=== PATIENT | male | born 1940 | race Caucasian/White ===

== ENCOUNTER 2016-08-17 07:30 | Inpatient (IN) | payer MEDICARE, OTHER ==
[~2016-08-17] VITALS: Ht 175.3 cm; Wt 74.8 kg
[2016-08-17] VITALS (7 sets, daily range): BP systolic 110–151; BP diastolic 31–77; PULSE 85–104; RESP 12–23; O2SAT 96–100
[~2016-08-17 07:30] MED LIST: ASPI-973 PO; ATOR40TA69 PO; CHOL100045 PO; DIPH25CA6 PO; HYDR-4003 PO; INSU100I13 SUBQ; METO25TA99 PO; NIAC-9 PO; ONDA-53 PO; SEVE800T7 PO; TICA90TA PO; ZOLP5TAB6 PO; ZYL100 PO
--- NOTE | 2016-08-17 07:30 | ED.REPORT ---
HPI-Chest Pain 40 and Over Date of Service Aug 17, 2016 ED Provider: Dr. Dickens Pt is a 75 year old male with a history of DM, a-fib and renal failure, being treated with dialysis who presents to the ED via EMS with concerns chest pain that was alleviated with nitroglycerin, which started several weeks ago. He reports that he woke up this mooning with centralized chest tightening, and attempted to alleviate the pain with nitroglycerin, without any alleviation of his symptoms. He reports that he eventually took 3 nitroglycerin total, and then called the EMS. Per dispatch, he took 4 baby Aspirin. Pt denies any radiation of his pain, diaphoresis, shortness of breath, nausea or vomiting. He reports that he had a heart attack in 2014, requiring an aortic valve replacement, he then had a second heart attack in 2016. Pt reports that at this time, he has no continued chest discomfort. He reports that he missed his dialysis appointment yesterday. Nursing Notes Stated Complaint: CHEST PAIN/STEMI Chief Complaint: Chest Pain Nursing Notes Reviewed: Yes Allergies: Coded Allergies: clopidogrel (Verified Allergy, Unknown, 06/28/16) per med.records from [facility] Scheduled Allopurinol (Allopurinol) 100 Mg Tablet 100 MG PO DAILY Aspirin (Aspirin) 81 Mg Tablet 81 MG PO DAILY Atorvastatin Calcium (Atorvastatin Calcium) 40 Mg Tablet 40 MG PO DAILY Cholecalciferol (Vitamin D3) (Vitamin D) 1,000 Unit Capsule 1,000 UNIT PO DAILY Insulin Glargine (Lantus U100 Solostar Insulin Pen) 100 Unit/1 Ml Insuln.pen 40 UNITS SUBQ HS Metoprolol Succinate ER (Metoprolol Succinate ER) 25 Mg Tab.er.24h 25 MG PO DAILY Niacin ER (Niacin ER) 500 Mg Tablet 500 MG PO DAILY Sevelamer Carbonate (Renvela) 800 Mg Tablet 800 MG PO TIDWM Ticagrelor (Brilinta) 90 Mg Tablet 90 MG PO BID Scheduled PRN Hydrocodone-Acetaminophen 5-325 mg (Hydrocodone-Acetaminophen 5-325 mg) 1 Each Tablet 1 EACH PO Q4H PRN PRN For Pain Nitroglycerin SL (Nitrostat) 0.4 Mg Tab.subl 0.4 MG SL Q5MIN PRN PRN For Pain Ondansetron (Ondansetron) 4 Mg Tablet 4 MG PO QID PRN PRN For Nausea Zolpidem (Zolpidem) 5 Mg Tablet 5 MG PO HS PRN PRN Insomnia diphenhydrAMINE HCl (Benadryl) 25 Mg Capsule 25 MG PO Q4 PRN PRN For Itching General Time Seen by MD: 07:30 Chief Complaint Chest pain Hx Obtained From: Patient, EMS Arrived By: Ambulance Sudden in Onset?: Yes Onset Occurred: 5 - 8 hours ago Symptom Duration: Since onset Location: : Chest left: Chest right Quality: Heaviness, Painful Radiation: : Does not radiate Severity: Current: No pain currently Severity: Maximum: Mild Similar Sx Previous: Yes Past Medical History Past Medical History Recent subarachnoid and subdural hematoma, hospitalized at [facility] in [place]. Hypertension Recent transcatheter aortic valve replacement Diabetes mellitus End-stage renal disease, on hemodialysis History of heart block, s/p pacemaker placement Paroxysmal atrial fibrillation Ischemic cardiomyopathy Coronary artery disease Past Surgical History Aortic valve replacement Family History Noncontributory Smoking History Never Smoker Social History Lives in [place] Alcohol Use: Denies alcohol use Drug Use: Denies drug use Other Social History: Good social support, Lives alone Ambulatory Status Independent Review of Systems Constitutional: Denies: Chills, Fever, Malaise, Weakness - generalized Respiratory: Denies: Non-productive cough, Shortness of breath, Wheezing Cardiovascular: Reports: Chest pain, Denies: Syncope GI: Denies: Abdominal pain, Constipation, Diarrhea, Nausea, Vomiting Musculoskeletal: Denies: Back pain, Extremity pain, Neck pain Skin: Denies Diaphoresis Neurologic: Denies: Abnormal movement, Change LOC, Dizziness, Headache, Syncope , Weakness Complete sys rev & neg: except as marked. Physical Exam Initial Vital Signs Vital Signs (First) Date Time Temp Pulse Resp B/P Pulse Ox O2 Delivery O2 Flow Rate FiO2 08/17/16 07:54 36.2 104 14 131/64 100 Room Air 08/17/16 08:07 2 Initial VS: Reviewed Head / Eyes: Atraumatic, Normocephalic, PERRL ENT: Mucous membranes moist, Conjunctiva normal, No scleral icterus Neck: Supple, Non-tender, Full range of motion Skin: Warm, Dry, No cyanosis Neurologic: Alert, Oriented, Nonfocal Psychiatric: Mood/affect normal, Behavior normal, Normal thought content General/Constitutional: Awake, Alert, Well appearing, Well developed, Well nourished, Cooperative [place] on the right upper extremity Respiratory / Chest: Atraumatic, Breath sounds NL, Breath sounds = bilat, No respiratory distress Cardiovascular: Heart rate NL, Regular rhythm, Heart sounds NL, No gallop, No murmurs, No rubs Abdomen: Atraumatic, Soft, Non-tender Interpretation & Diagnostics Lab Results Interpretation Result Diagram: 08/17/16 0754 08/17/16 0754 Test 08/17/16 05:35 08/17/16 07:54 08/17/16 08:43 Total Creatine Kinase 55U/L (21-232) Creatine Kinase MB 8.1ng/mL (0.0-10.4) Creatine Kinase MB % 14.7% (0.0-5.0) White Blood Count 13.6th/mm3 (3.8-10.1) Red Blood Count 3.36mil/mm3 (4.40-5.80) Hemoglobin 10.5g/dL (13.8-17.2) Hematocrit 31.8% (41.0-50.0) Mean Corpuscular Volume 94.6fL (81-100) Mean Corpuscular Hemoglobin 31.3pg (27.0-35.0) Mean Corpuscular Hemoglobin Concent 33.0% (32.0-37.0) Red Cell Distribution Width 17.5% (12.3-15.4) Platelet Count 126bil/L (150-400) Neutrophils (%) (Auto) 78.8% (40-74) Lymphocytes (%) (Auto) 11.1% (14-46) Monocytes (%) (Auto) 5.9% (4-12) Eosinophils (%) (Auto) 3.3% (0-5) Basophils (%) (Auto) 0.7% (0-3) Activated Partial Thromboplast Time 32.1sec (22.8-33.0) Sodium Level 140mEq/L (134-144) Potassium Level 4.4mEq/L (3.5-5.2) Chloride Level 97mEq/L (97-108) Carbon Dioxide Level 15mmol/L (18-29) Blood Urea Nitrogen 68mg/dL (8-27) Creatinine 8.43mg/dL (0.76-1.27) Estimat Glomerular Filtration Rate 7mL/min (>59) Glucose Level 174mg/dL (60-99) Calcium Level 9.7mg/dL (8.5-10.1) Magnesium Level 2.1mg/dL (1.6-2.6) Total Bilirubin 0.4mg/dL (0.0-1.2) Aspartate Amino Transf (AST/SGOT) 22U/L (0-50) Alanine Aminotransferase (ALT/SGPT) 18U/L (0-44) Alkaline Phosphatase 109U/L (25-160) Troponin T 0.943ug/L (0.0-0.011) Total Protein 6.0g/dL (6.4-8.4) Albumin 3.3g/dL (3.4-5.0) Hold [place] Top Tube Received (Received) ECG Interpretation ECG Interpretation: Atrial-sensed ventrical paced rhythm - 95 Time: 07:37 X-Ray Chest Interpretation Chest Xray Interpretation: IMPRESSION: 1. No acute cardiopulmonary disease. Dictated by: Heber Mora M.D. on 08/17/2016 at 10:25 View: Portable, 1 view Interpretation / Wet Read by: Interpret - Radiologist Re-Eval/Medical Decision Source of Hx: Old records Summary of Info: Current Medication: trazodone Zofran metoprolol Sevelamer Carbonate Time of Eval: 10:02 Re-Evaluation/Progress Note: Pt is rechecked and informed of his lab results and the plan to admit him at this time. He understands and agrees, all questions are addressed. Consultation #1: Referral / Consult Name: Yadira Mclain MD Consulted With: Cardiology Call Returned at: 09:36 House Piping Inspector: Will see patient, Agrees with eval, Agrees with plan Consultation #2: Referral / Consult Name: Akua Walsh MD Consulted With: Nephrology Call Returned at: 09:41 House Piping Inspector: Will see patient, Agrees with eval, Agrees with plan Consultation #3: Referral / Consult Name: Krish Guzman MD Consulted With: Hospitalist Call Returned at: 09:55 House Piping Inspector: Agrees with eval, Agrees with plan, Referred to other consult Consultation #4: Referral / Consult Name: Dez Grissom MD Consulted With: Hospitalist Call Returned at: 10:14 House Piping Inspector: Will see patient, Agrees with plan, Accepts admit Counseled Regarding: Diagnosis, Lab results, Need for admission Discharge & Departure Primary Impression: Unstable angina Disposition: ADMITTED TO HOSPITAL Discharge Condition All VS Reviewed: Yes Condition: Stable Referrals: Hema Phillips MD (PCP) Scribe Attestation Portions of this note were transcribed by Karlee Junior. I, Dr. Dickens personally performed the history, physical exam and medical decision-making; I reviewed and confirmed the accuracy of the information in the transcribed note. Signed by: Karlee Suazo, 08/17/2016 10:37 copies to: Hema Phillips MD, Kirk H MD Aug 17, 2016 07:30 SARAH JUNIOR Aug 17, 2016 07:46
[2016-08-17 08:07] LABS: BASOPHILS % (AUTO) 0.7 % (0-3); EOSINOPHILS % (AUTO) 3.3 % (0-5); MONOCYTES % (AUTO) 5.9 % (4-12); Mean Corpuscular Hemoglobin 31.3 pg (27.0-35.0); Mean Corpuscular Volume 94.6 fL (81-100); NEUTROPHILS % (AUTO) 78.8 % (40-74); Platelet Count 126 bil/L (150-400)
[2016-08-17 09:05] LABS: TROPONIN T 0.943 ug/L (0.0-0.011)
[2016-08-17 09:27] LABS: Magnesium 2.1 mg/dL (1.6-2.6)
[2016-08-17] MEDS ORDERED: NITR0.4T SL (09:54)
[2016-08-17] MEDS ORDERED: Heparin 5,000 Unit/mL Inj IVPUSH PRN (10:00)
[2016-08-17] MEDS ORDERED: Heparin 25K Unit/500mL 0.45 NS 25,000 UNIT in IV Premix 1 EACH IV SCH (10:00)
[2016-08-17] MEDS ORDERED: Heparin 5,000 Unit/mL Inj IVPUSH ONE ×2 (10:00)
--- NOTE | 2016-08-17 10:30 | DRSVH ---
PROCEDURE: X-RAY CHEST ONE VIEW, PORTABLE ([id number]) INDICATIONS: CHEST PAIN TECHNIQUE: One view of the chest was acquired. COMPARISON: [facility], , CHEST 1 VIEW, 08/16/2016, 10:38. FINDINGS: Surgical changes and devices: Left chest wall triple lead pacemaker is stable in position. A stent i s again noted projecting over the heart. Lungs and pleura: No pleural effusions or pneumothorax. Lungs are clear. Mediastinum: Mediastinal contours appear unchanged. Heart size is normal. Bones and chest wall: No suspicious bony lesions. Overlying soft tissues appear unremarkable. IMPRESSION: 1. No acute cardiopulmonary disease. Dictated by: Heber Mora M.D. on 08/17/2016 at 10:25 Approved by: Heber Mora M.D. on 08/17/2016 at 10:25
[2016-08-17] MEDS ORDERED: Alum-Mag Hydrox-Simeth 30 mL Suspension PO PRN (11:25)
[2016-08-17] MEDS ORDERED: Ondansetron 2 mg/mL 2 mL Inj IVPUSH PRN (11:25)
[2016-08-17] MEDS ORDERED: Polyethylene Glycol (PEG) 17 Gm Powder PO PRN (13:45)
--- NOTE | 2016-08-17 13:47 | NUR ---
ED to PCC Patient arrived at approximately 1150 to PCC. Patient had to use bathroom upon arrival. Patient AO, aware of place, self and time. States he has been unsteady on his feet since his last heart attack and some memory deficits. Care continues.
--- NOTE | 2016-08-17 15:18 | CONS ---
[address] [address] CONSULTATION REPORT PATIENT: ALLY HIRSCH : 1940 MR#: [id number] ADMIT: 08/17/2016 JOB ID: [id number] DATE OF SERVICE: 08/17/2016 NEPHROLOGY CONSULTATION: REQUESTING PHYSICIAN: Dez Grissom MD REASON FOR CONSULTATION: Management of end-stage renal disease. CHIEF COMPLAINT: Chest pain. HISTORY OF PRESENT ILLNESS: This is a 75-year-old male with significant past medical history of end-stage renal disease on hemodialysis every Friday, Friday, and Friday, type 2 diabetes, hypertension, coronary artery disease status post stent placement, aortic stenosis status post TAVR, paroxysmal atrial fibrillation, recent history of subarachnoid and subdural hematoma, presented to the hospital due to substernal chest pain. The patient reported having chest pain this morning. The patient took nitroglycerin without relief. He also took four pills of baby aspirin. He then called the EMS and was brought to the emergency department for further investigation. The patient has significant past medical history of heart attack x2 in 2014 and in 2015 that required stent placement. The initial workup showed the troponin of 0.9 for three, CK-MB of 14.7. Initial EKG showed a paced rhythm. Of note, in the emergency department the patient was found to be confused. CT head was done and showed no acute abnormalities. During my visit the patient is at the medical observation unit being on dialysis. He is awake, alert. He has no chest pain or shortness of breath at the moment. He is a patient of . He has been on dialysis for one and half years. He has right AV fistula which is working well. He missed dialysis yesterday. PAST MEDICAL HISTORY: 1. End-stage renal disease, on hemodialysis every Friday, Friday, and Friday. 2. Type 2 diabetes with renal manifestation. 3. Hypertension with hypertensive nephrosclerosis. 4. Coronary artery disease with history of heart attack in 2014 and 2015, status post stent placement. 5. Aortic stenosis status post TAVR. 6. Paroxysmal atrial fibrillation. 7. Heart block status post pacemaker placement. 8. Recent history of subarachnoid and subdural hematoma. PAST SURGICAL HISTORY: 1. Status post trans catheter aortic valve replacement in 2016. 2. Pacemaker placement 2016. 3. PCI with stent placement 2016. 4. History of corneal transplant. 5. Status post AV fistula creation. FAMILY HISTORY: Positive for stroke in father. Mother had type 2 diabetes and was on dialysis. SOCIAL HISTORY: Denies current use of alcohol, tobacco, illicit drugs. REVIEW OF SYSTEMS: Constitutional: No fever, no chills. HEENT: No headaches. No blurred vision. Cardiovascular: Positive for chest pain, resolved. Lungs: No cough, no hemoptysis. GI: No nausea or vomiting. : The patient is making some urine. Skin: No rashes, no excoriation. Hematology: No active bleeding. No bruises. Neuro: No neurological deficit. PHYSICAL EXAMINATION: Vitals: Temperature 36.4, pulse 98, respiratory 18, blood pressure 151/77, O2 sat 100% on nasal cannula 2 L. General appearance: Awake, alert. Oriented x3. In no acute distress. HEENT: Mild pallor. No jaundice. No JVD. No lymphadenopathy. No thyroid enlargement. Heart: Regular rate and rhythm. Normal S1, S2. No murmurs, rubs, or gallops. Lungs: Clear to auscultation bilaterally. Abdomen: Soft. Umbilical hernia noted. No hepatosplenomegaly. Extremity: No edema, cyanosis, or clubbing of the fingers. The right AV fistula with good thrill and bruit. LABORATORY: Sodium 140, potassium 4.0, chloride 97, bicarb 15, BUN 68, creatinine 8.43, glucose 174, calcium 9.7, magnesium 2.1. Troponin 0.943. Albumin 3.3. WBC 13.8, hemoglobin 10.5. ASSESSMENT: 1. End-stage renal disease, on hemodialysis every Friday, Friday, and Friday. The patient missed dialysis yesterday. The patient is currently on the hemodialysis. Stable blood pressure. He has no chest pain. No shortness of breath at the moment. We will continue dialysis three and a half hours. Fluid removal 1.5 L with a 2 potassium bath, 37 bicarbonate bath. Blood flow rate 400, dialysate flow rate 600. 2. Chest pain with elevated troponin. 3. Significant past medical history of coronary artery disease status post myocardial infarction, status post stent placement. 4. Altered mental status, resolved. Patient with a significant past medical history of a fall complicated by subarachnoid and subdural hematoma. He is now awake and alert. Continue to observe. 5. Type 2 diabetes with renal manifestation. 6. Hypertension with hypertensive nephrosclerosis. 7. Aortic stenosis status post transcatheter aortic valve replacement (TAVR). Thank you for the consultation. We will monitor along with you.
--- NOTE | 2016-08-17 17:23 | NUR ---
Dialysis note 3 1/2 hr HD tx. 1000ml net UF removed. See DTR for complete vitals. 2 15 g needles to RU fistula. Pt rested comfortably thru tx. Sureseals/and pt held post tx. Report given and pt returned to floor stable.
--- NOTE | 2016-08-17 18:16 | PCM.HPMED ---
Subjective Date of Service Aug 17, 2016 Primary Provider: Admitting Physician: Dez Grissom MD Primary Care Physician: Hema Phillips MD Attending Physician: Dez Grissom MD Admit Status: From the Emergency Department, Admit to [facility] Team Chief Complaint: Chest pain History of Present Illness: Lalo Trinh is a 75-year-old male with significant past medical history for end-stage renal disease on hemodialysis dialysis Friday and Friday, type II diabetes, hypertension, coronary artery disease status post drug- eluting stents, aortic stenosis status post TAVR, paroxysmal atrial fibrillation with pacemaker placement, and recent history of subarachnoid and subdural hematoma who presents with chest pain. Chest pain began around 0 and was described as a tight pressure sensation. He took 3 doses of his nitroglycerin and symptoms resolved. At this time he still called EMS who brought him to the emergency department for further workup. Of note he missed his dialysis session yesterday, 08/16, due to being at [facility] for a rapid heart rate. He states that his rapid heart rate resolved with medications given to him in the emergency department. Patient denies any continued chest pain. He states he is only on aspirin and Plavix was discontinued after being found to have a subdural hematoma in June 2016. He saw his email marketing coordinator Dr. Albrecht 2 weeks ago and there was no mention of restarting the Plavix at that time. Patient's primary care doctor is Dr. Phillips and rpg developer is Dr. Lopez. Patient currently denies any chest pain, palpitations, shortness of breath, nausea, vomiting, diarrhea, fever , chills, or dysuria. On presentation to the emergency department temp was 36.2, pulse was 104, respiratory rate 14, pulse oximetry 100% on room air, blood pressure 131/64. Patient was found to have an elevated troponin of 0. 943 elevated from his baseline of 0.1. BUN and creatinine 68 and 8.43. Leukocytosis of 13.6 and hemoglobin 10.5. Review of Systems: Comprehensive review of systems was conducted with the patient and found to be negative except as noted above in HPI. Allergies Coded Allergies: clopidogrel (Verified Allergy, Unknown, 06/28/16) per med.records from [facility] Home Medications Hydrocodone 5/325 every 6 hours when necessary Trazodone 100 mg nightly Lantus 20-40 units nightly Metoprolol 25 mg daily Atorvastatin 40 mg daily Renvela 2400 mg daily Nitrostat when necessary Allopurinol 100 mg daily Aspirin 81 mg daily Vitamin D PMH Recent subarachnoid and subdural hematoma, hospitalized at [facility] in [place] and discharge 06/14/16. Type 2 diabetes mellitus Hypertension CAD with history of AL s/p drug-eluting stent placement Aortic stenosis s/p TAVR ESRD on HD (M/W/F) Paroxysmal atrial fibrillation History of heart block s/p pacemaker placement Ischemic cardiomyopathy Surgical History TAVR (2016) Pacemaker placement (2016) PCI with drug-eluting stent placement (2016) History of multiple corneal transplants Family History Father - stroke Mother - DMII who ended up with ESRD on HD Social History Occupation: retired contractor Hx Alcohol Use: No Hx Substance Use: No Hx Tobacco Use: No Smoking Status: Never Smoker Living Arrangement: Alone Exam Vital Signs Vital Sign - Last Date Time Temp Pulse Resp B/P Pulse Ox O2 Delivery O2 Flow Rate FiO2 08/17/16 11:47 36.4 98 18 151/77 100 Nasal Cannula 2.00 Exam General: No acute distress, well-developed, well-nourished, appropriately interactive HEENT: Normocephalic, atraumatic. External ears without defect. Pupils equal, round, and reactive to light and accommodation. Anicteric sclerae, moist conjunctivae, and no lid lag. Oropharynx free of erythema and cobble stoning with moist mucosa. Neck: Supple with full range of motion. No jugular venous distension. No bruits. No lymphadenopathy or thyromegaly. Cardiovascular: Regular rate and rhythm with II/IV systolic murmur. Pulmonary: Clear to auscultation bilaterally with no crackles, wheezes, or rhonchi. Normal respiratory effort with no use of accessory muscles. Abdomen: Bowel tones present. Soft, nontender, nondistended. No hepatosplenomegaly or masses appreciated. Extremities: Right arm fistula with palpable pulses. No clubbing, cyanosis, edema, or lymphadenopathy appreciated. Skin: Normal temperature, turgor, and texture; no rash, ulcers, or subcutaneous nodules appreciated. Neurological: Cranial nerves grossly intact. Normal muscle strength, tone, and bulk. Reflexes, coordination, and sensory function within normal limits. No known gait impairment. Psychiatric: Normal mood and affect. Alert and oriented to person, place, and time. Lab and Diagnostics Result Diagram: 08/17/16 0754 08/17/16 0754 X-Rays, CTs and MRIs X-RAY CHEST ONE VIEW, PORTABLE IMPRESSION: 1. No acute cardiopulmonary disease. Dictated by: Heber Mora M.D. on 08/17/2016 at 10:25 Approved by: Heber Mora M.D. on 08/17/2016 at 10:25 Assessment & Plan Lalo Trinh is a 75-year-old male with significant past medical history for end-stage renal disease on hemodialysis dialysis Friday, Friday, and Friday, type II diabetes, hypertension, coronary artery disease status post drug- eluting stents, aortic stenosis status post TAVR, paroxysmal atrial fibrillation with pacemaker placement, and recent history of subarachnoid and subdural hematoma who presents with chest pain. 1. Chest pain, present on admission, resolved. - Chest pain lasted for 1-2 hours and resolved as EMS arrived at home. Patient has a long cardiac history including multiple stents, valve replacement, and pacemaker placement. Called the on-call doctor at [facility], Dr. Ryan Prajapati, to discuss patient as his home regimen appears to include only aspirin and no Plavix or subsequent agent. He confirmed this is the only agent per Dr. Albrecht's note [address] Albrecht is the patient's email marketing coordinator who completed the TAVR. This is likely explained by the patient's recent subdural hematoma in June 2016 but is concerning as the patient has drug-eluting stents. - Initial troponin on admission was 0.943. - Serial troponins are pending but will be difficult to assess as patient had dialysis. - Heparin drip was not started due to recent subdural hematoma in June 2016. - Aspirin 81 mg daily. - Atorvastatin 40 mg daily. - Echo planned for tomorrow. - Discussed case with [facility] - Cardiology consulted. Appreciate time and expertise. Acute encephalopathy secondary to possible TIA, present on admission. 2. End-stage renal disease on hemodialysis, present on admission, active. - Schedule M/W/. Patient missed most recent dialysis appointment on 08/16. - On admission BUN and creatinine were 68 and 8.43. - Patient received dialysis today. - Repeat labs in the morning. - Nephrology following. Appreciate time and expertise. 3. Diabetes mellitus type 2, present on admission, chronic. - Hemoglobin A1c 5.3 on 06/28/16.. - Home regimen includes 20-40 units of Lantus HS. - Regular insulin low-dose protocol. 4. Leukocytosis, present on admission, active. - Possibly secondary to stress or demarcation. - WBC 13.6 on admission. - Asymptomatic and afebrile. - Repeat CBC in the morning. 5. CAD s/p stenting, chronic, presume stable. - Continue atorvastatin 40 mg HS. - Continue aspirin 81 mg daily - Antiplatelet agents stopped according to explanation in #1. 6. Hypertension, chronic, presume stable. - Continue metoprolol succinate 25 mg daily. 7. Gout, chronic, presume stable. - Continue allopurinol 100 mg daily. 8. Insomnia, chronic, presume stable. - Zolpidem 5 mg available PRN HS. 9. Recent TAVR, presume secondary to aortic stenosis, presume stable. - Patient appears well compensated at this time. - Dr. Albrecht at [facility] was the email marketing coordinator. Patient is admitted under inpatient status with expected length of stay greater than 2 midnights due to severity of presenting symptoms, risk of adverse event, and complexity of treatment plan. - PCP Hema Phillips - Labor Mediator Marc Lopez - Cyber Security Architect Dr. Albrecht Pain Evaluation: Adequate Pain Control GI Prophylaxis: Not indicated VTE Prophylaxis: SCDs, Other (contraindicated due to recent subdural hematoma) Resuscitation Status: DNR/DNI:Do Not Resuscitate/Intubate Attending Statement The patient was seen and examined together with Dr. Coe on 08/17/2016 and I agree with the history, exam and plan as outlined in the note above. . copies to: Hema Phillips MD, BETHANY A DO Aug 17, 2016 12:10 Dez Grissom MD Aug 17, 2016 21:27
--- NOTE | 2016-08-17 19:06 | NUR ---
Dialysis to PCC Patient arrived back from dialysis at approximately 1730. Patient AOx3 ready to drink water and eat dinner. Patient states he is forgetful and confused at times, also states he is unsteady on his feet and uses a walker at home. Patient's blood sugar was 172, orders for medications are not in [facility] yet. Patient eating dinner, resting comfortably. Call light in place, patient educated to use call light for assistance to bathroom. Pt cooperative, acknowledged need to use call light. Care continues.
--- NOTE | 2016-08-17 19:10 | NUR ---
Medications Medications ordered at 1750, waiting for pharmacy to send medications. Will pass on in report to night court magistrate.
[2016-08-17] MEDS: MeTOProlol XL 25 mg ER24 Tablet PO SCH (19:48)
--- NOTE | 2016-08-17 20:15 | NUR ---
Trops Patients troponin levels have trended up gates this evening. Patient is resting comfortably in bed without signs of distress. Vital signs are stable and patient is complaint free. Provider informed about the rising troponin levels. No new orders at this time.
[2016-08-17] MEDS: Insulin Human REGular 300 Unit/3 mL Inj SUBQ SCH ×2 (20:30→21:10)
[2016-08-18] VITALS (10 sets, daily range): BP systolic 101–143; BP diastolic 50–88; PULSE 79–100; RESP 12; O2SAT 93–100
[2016-08-18] MEDS: Insulin Human REGular 300 Unit/3 mL Inj SUBQ SCH ×3 (02:30→12:58)
--- NOTE | 2016-08-18 02:40 | NUR ---
Blood sugar. Patient's blood sugar was found to be 66 this morning. Patient is free of complaints at this time and is resting comfortably in bed. Patient was given several snacks and blood sugar eventually came up to 110. Morning insulin was held and vitals are stable.
[2016-08-18 03:53] LABS: BASOPHILS % (AUTO) 0.8 % (0-3); EOSINOPHILS % (AUTO) 5.7 % (0-5); MONOCYTES % (AUTO) 11.1 % (4-12); Mean Corpuscular Hemoglobin 30.8 pg (27.0-35.0); Mean Corpuscular Volume 95.5 fL (81-100); NEUTROPHILS % (AUTO) 66.7 % (40-74); Platelet Count 111 bil/L (150-400)
[2016-08-18 04:17] LABS: Magnesium 1.8 mg/dL (1.6-2.6)
--- NOTE | 2016-08-18 07:47 | NUR ---
ED to [facility] Patient arrived from ED at approximately 0725. Report taken from Carol Mckee in ED. Patient desatting to 83% during assessment. Increase O2 to 6L satting at 89% with oxymask. Addendum: 08/18/16 at 1331 by ZACHARIAH FLOOD RN Charted on wrong patient
[2016-08-18] MEDS: MeTOProlol XL 25 mg ER24 Tablet PO SCH (08:30)
[2016-08-18] MEDS ORDERED: Heparin 5,000 Unit/mL Inj IVPUSH PRN (12:10)
[2016-08-18] MEDS ORDERED: Heparin 5,000 Unit/mL Inj IVPUSH ONE (12:10)
--- NOTE | 2016-08-18 12:15 | PROG NOTE ---
[address] [address] PROGRESS NOTE PATIENT: ALLY HIRSCH : 1940 MR#: [id number] ADMIT: 08/17/2016 JOB ID: [id number] ADDENDUM TO ORIGINAL CARDIOLOGY CONSULT NOTE: DATE: 08/18/2016 In the interim since I worked with the patient today, I have reviewed his echocardiogram. It does appear he has old inferior inferolateral wall motion abnormalities, but now the anterior anterolateral anteroseptal apex appears relatively hypokinetic which was not seen on a previous echo. He is chest-pain free. I have talked with Dr. Buchanan at [facility] in [place] and asked him if they had a bed for the patient for transfer given his issue of TAVR (unknown type of valve), history of stents, old angiographic views available there, and a history of head bleed. He got back to me and told me that he did not have any beds to accept this patient at the time. He did do some research on the patient given his history of head bleed and said it would be reasonable to go on heparin and felt that all signs suggested that the patient would not have any problems on heparin. So, we are going to put him on heparin. We are going to keep him on the Brilinta, keep him on aspirin and all his other cardiac medications and hope that a bed opens up for transfer for further assessment by a team who knows this complex gentleman better.
[2016-08-18] MEDS: Heparin 25K Unit/500mL 0.45 NS 25,000 UNIT in IV Premix 1 EACH IV SCH (12:51)
--- NOTE | 2016-08-18 13:35 | CONS ---
[address] [address] CONSULTATION REPORT PATIENT: ALLY HIRSCH : 1940 MR#: [id number] ADMIT: 08/17/2016 JOB ID: [id number] DATE OF SERVICE: 08/18/16 CARDIOLOGY CONSULT: I was asked by the hospital team to consult on this patient given elevated troponin. HISTORY OF PRESENT ILLNESS: The patient is a 75-year-old man with extensive past medical history noted for end-stage renal disease on dialysis, type 2 diabetes, hypertension, and coronary disease. He also status post a TAVR for symptomatic aortic stenosis on April 16, 2016. He has a history of recent fairly recent stenting of the left anterior descending artery and right coronary artery with drug-eluting stents in March 2016. In addition the patient had problems with headache back in June 2016 and therefore he was sent for further assessment and there it was identified that the patient had bilateral subdural hematomas and a small subarachnoid bleed. He was not felt to be an operative candidate. At that time they held his antiplatelet medication which include aspirin and Brilinta. Recommendations at that time were for holding those medications for a total of two weeks and reinitiating those on June 25, 2016. I have spoken with the patient and he says that he is taking those medications once again. He tells me he has had multiple followup CTs which have not shown any worsening problems and he currently denies any problems with headache. With this current admission, early yesterday morning he developed an episode of chest discomfort. He tried nitroglycerin and was not certain if that worked but he was able to go back to bed. He got up again with chest discomfort, took two additional nitroglycerins, and given nonresolution of the chest discomfort he called the ambulance. He requested the ambulance take him up to [place] given his extensive cardiac history and the people who know him well there; however, he was taken to this ER. His initial troponin was already elevated, the CPK was not elevated, and the CK-MB was not elevated. Creatinine was 8.43 with a BUN of 68. As our team did not have any information about this patient's followup regarding head bleeds he was not put on heparin. There was some confusion about whether he was taking his antiplatelets at this time again, given lack of information. He was continued on a baby aspirin, however. Yesterday we were able to speak to the on-call vacuum spindle sander and old records were sent yesterday afternoon. The patient is doing well. He denies any chest pressure or chest discomfort. He would like to go home, in fact. He denies increased shortness of breath. He had dialysis yesterday. Prior to this, he had not had any chest pressure, chest tightness, orthopnea, PND, lower extremity edema, palpitations, presyncope, or syncope, although per review of a note from August 02, 2016, with his primary vacuum spindle sander, it said that he had been having chest pain over the last several days relieved with nitro. PAST MEDICAL HISTORY/PROBLEM LIST: 1. History of TAVR for aortic stenosis. 2. History of coronary disease with recent stenting to the right coronary artery and left anterior descending artery with drug-eluting stents. These were placed in March 2016. 3. Recent admission in June 2016 with bilateral subdural hematomas and a small subarachnoid bleed, during which he held his antiplatelets for two weeks and then had them reinitiated. He tells me again he has had multiple followup CTs. 4. End-stage renal disease. 5. Paroxysmal atrial fibrillation. 6. History of heart block status post pacer placement. 7. Reports of ischemic cardiomyopathy. PAST SURGICAL HISTORY: 1. TAVR in 2015. 2. Pacemaker placement 2015. 3. Drug-eluting stent as noted. 4. Also history of corneal transplants. MEDICATIONS: Included Benadryl as needed, Brilinta 90 mg b.i.d., atorvastatin 40 mg daily, metoprolol succinate 25 mg daily, niacin ER 500 mg daily, aspirin 81 mg daily, hydrocodone as needed, zolpidem 5 mg q.h.s. p.r.n., sevelamer 800 mg tablets, Zofran, glargine insulin, and allopurinol. ALLERGIES: INTOLERANCES APPARENTLY TO CLOPIDOGREL OR PLAVIX. SOCIAL HISTORY: He has never smoked. No alcohol use. FAMILY HISTORY: No early coronary disease. REVIEW OF SYSTEMS: Constitutional: No fevers, chills, night sweats, or weight loss. GI: No problems with ulcers or blood in his stool. : On dialysis. Neuro: Headaches with subdural hematomas, small arachnoid bleed in June 2016. Currently no problems with headaches or neurologic problems. Derm: No rash or skin breakdown. Musculoskeletal: No acute issues at this time. Heme: No easy bruising or bleeding. Endocrine: Diabetes mellitus. No heat or cold intolerance. Pulmonary: No history of lung issues. No increased shortness of breath. Cardiac: As per HPI. Denies orthopnea, PND, lower extremity edema. ENT: No difficultly swallowing. No sore throat. Ophtho: No vision changes. Psych: No acute issues. All other review of systems on a 12-point review of system are negative. PHYSICAL EXAMINATION: His blood pressure is 101/55. He is afebrile. Sats are 98% on room air. General: No acute distress. Speaking in full sentences, without apparent shortness of breath. Head and neck: Normocephalic, atraumatic. Neck: No obvious JV distention. Vascular: No carotid bruits. Distal pulses are palpable. Heart: Regular rate and rhythm. A slight systolic murmur is appreciated. Lungs: Clear to auscultation anteriorly. Back: No CVA tenderness to palpation. Abdomen: Soft, nontender. Extremities: Warm. I do not appreciate edema Skin: No breakdown appreciated. Neuro: Alert and interactive. Gait not tested. Psych: Appropriate mood and affect. vision: grossly normal LABORATORY AND DIAGNOSTIC STUDIES: EKG shows a paced rhythm. IMAGING: Shows a chest x-ray with no acute cardiopulmonary disease. LABORATORY STUDIES: Labs show troponin was 0.943 and it has ranged in the range of 1.4-1.5. Today sodium 141, potassium 4.2. Chloride and bicarb 98 and 27, respectively. BUN and creatinine 30 and 5. IMPRESSION: 1. The patient came in with an elevated troponin. There has been a slight increase, although there has been no elevation of CK or CK-MB. He is currently chest pain free. There is no clue as to what vessel might have been involved given his paced rhythm. He denies any chest discomfort at this time and he would like to go home. He was not placed on heparin during this admission because there was a lack of knowledge about his previous bleeding history; we did not have information about the recommendations regarding his head bleed which he had in June. We now have received some of that information but at this point he is on he is on Brilinta and aspirin I will discuss further with his vacuum spindle sander in [place] 2. We have ordered an echocardiogram to look at the wall motion and see if we see any focal wall motion abnormalities that might be related to the elevated troponin. Unfortunately I do not have his old cath films and I have I have very limited information about his previous heart catheterization. I will review that and then I think we need to discuss this case with the vacuum spindle sander in [place] as to whether they want to take this gentleman and take him to cardiac catheterization or do we want to treat him conservatively with medical management at this juncture. 2 hours was spent discussing this case with the hospital team, reviewing old hospital records, discussing with the construction lineman vacuum spindle sander at [place], and speaking with an examining the patient MTDD
--- NOTE | 2016-08-18 14:10 | NUR ---
Medication Patient refused Sevelamer states he only takes it before he eats. Patient finished breakfast.
--- NOTE | 2016-08-18 14:56 | PCM.PNMED ---
Subjective Date of Service Aug 18, 2016 Subjective Chest pain subsided, on heparin gtt. eval by instrumentation technician. pt to be transferred to [facility]. HD yesterday without complication. Exam Vital Signs Vital Sign - Last Date Time Temp Pulse Resp B/P Pulse Ox O2 Delivery O2 Flow Rate FiO2 08/18/16 12:20 36.7 83 12 143/50 100 Room Air 08/17/16 11:47 2.00 Intake and Output 08/17/16 08/17/16 08/18/16 Cumulative From/Thru 15:00 23:00 07:00 08/17/16 07:54 - 08/18/16 06:41 Intake Total 50 ml 50 ml Output Total 1000 ml 0 ml 1000 ml Balance -1000 ml 50 ml -950 ml Intake Oral 50 ml 50 ml Output Urine Total 0 ml 0 ml Ultrafiltrate 1000 ml 1000 ml Exam PHYSICAL EXAMINATION: General appearance: Awake, alert. Oriented x3. In no acute distress. HEENT: Mild pallor. No jaundice. No JVD. No lymphadenopathy. No thyroid enlargement. Heart: Regular rate and rhythm. Normal S1, S2. No murmurs, rubs, or gallops. Lungs: Clear to auscultation bilaterally. Abdomen: Soft. Umbilical hernia noted. No hepatosplenomegaly. Extremity: No edema, cyanosis, or clubbing of the fingers. The right AV fistula with good thrill and bruit. Lab and Diagnostics Result Diagram: 08/18/16 0338 08/18/16 0338 X-Rays, CTs and MRIs X-RAY CHEST ONE VIEW, PORTABLE IMPRESSION: 1. No acute cardiopulmonary disease. Dictated by: Heber Mora M.D. on 08/17/2016 at 10:25 Approved by: Heber Mora M.D. on 08/17/2016 at 10:25 Assessment & Plan 1. End-stage renal disease, on hemodialysis every Friday, Friday, and Friday. The patient missed dialysis yesterday. 2. Suspected NSTEMI, on heparin drip and brilinta. 3. Significant past medical history of coronary artery disease status post myocardial infarction, status post stent placement. 4. Altered mental status, resolved. 5. Type 2 diabetes with renal manifestation. 6. Hypertension with hypertensive nephrosclerosis. 7. Aortic stenosis status post transcatheter aortic valve replacement (TAVR). 8. h/o intracranial hemorrhage. Plan: No urgent HD indicated today. Next HD on Friday. Pt to be transferred to [facility] Thank you for the consultation. GI Prophylaxis: Not indicated VTE Prophylaxis: SCDs, Other (contraindicated due to recent subdural hematoma) VTE Mechanical Devices: Intermittant Pneumatic CD Resuscitation Status: DNR/DNI:Do Not Resuscitate/Intubate Akua Walsh MD Aug 18, 2016 14:56
--- NOTE | 2016-08-18 18:18 | NUR ---
ED to [facility] Patient arrived from ED, report taken from Anna Caceres ED RN. Patient able to transfer to bed independently. SPO2 88% upon arrival. RT in room with pt, oxymask 2L satting at 90%. Pt AOx3, denies chest pain, denies bipap at this time okay for oxymask. Care continues. Addendum: 08/18/16 at 1821 by ZACHARIAH FLOOD RN Wrong patient
--- NOTE | 2016-08-18 18:28 | NUR ---
Resting Patient states he is more tired than normal, resting throughout the day. Cooperative with care. Care continues.
[2016-08-18] MEDS ORDERED: Glucose 40% Oral Gel 15 Gm Tube PO PRN (19:35)
--- NOTE | 2016-08-18 19:39 | PCM.PNMED ---
Subjective Date of Service Aug 18, 2016 Subjective Lalo Trinh is a 75-year-old male with significant past medical history for end-stage renal disease on hemodialysis dialysis Friday, Friday, and Friday, type II diabetes, hypertension, coronary artery disease status post drug- eluting stents, aortic stenosis status post TAVR, paroxysmal atrial fibrillation with pacemaker placement, and recent history of subarachnoid and subdural hematoma who presents with chest pain. Hospital day 2. Overnight: No acute events. Today: The patient feels fine and has no complaints. He denies any chest pain, shortness of breath, or weakness. ROS is negative otherwise except as noted above. Exam Vital Signs Vital Sign - Last Date Time Temp Pulse Resp B/P Pulse Ox O2 Delivery O2 Flow Rate FiO2 08/18/16 16:38 36.6 79 125/61 97 Room Air 08/18/16 12:20 12 08/17/16 11:47 2.00 Intake and Output 08/17/16 08/17/16 08/18/16 Cumulative From/Thru 15:00 23:00 07:00 08/17/16 07:54 - 08/18/16 06:41 Intake Total 50 ml 50 ml Output Total 1000 ml 0 ml 1000 ml Balance -1000 ml 50 ml -950 ml Intake Oral 50 ml 50 ml Output Urine Total 0 ml 0 ml Ultrafiltrate 1000 ml 1000 ml Exam General: No acute distress, well-developed, well-nourished, appropriately interactive HEENT: Normocephalic, atraumatic. External ears without defect. Pupils equal, round, and reactive to light and accommodation. Anicteric sclerae, moist conjunctivae, and no lid lag. Oropharynx free of erythema and cobble stoning with moist mucosa. Neck: Supple with full range of motion. No jugular venous distension. No bruits. No lymphadenopathy or thyromegaly. Cardiovascular: Regular rate and rhythm with II/IV systolic murmur. Pulmonary: Clear to auscultation bilaterally with no crackles, wheezes, or rhonchi. Normal respiratory effort with no use of accessory muscles. Abdomen: Bowel tones present. Soft, nontender, nondistended. No hepatosplenomegaly or masses appreciated. Extremities: Right arm fistula with palpable pulses. No clubbing, cyanosis, edema, or lymphadenopathy appreciated. Skin: Normal temperature, turgor, and texture; no rash, ulcers, or subcutaneous nodules appreciated. Neurological: Cranial nerves grossly intact. Normal muscle strength, tone, and bulk. Reflexes, coordination, and sensory function within normal limits. No known gait impairment. Psychiatric: Normal mood and affect. Alert and oriented to person, place, and time. IVs and Medications Medications Reviewed: Medications were reviewed in detail Lab and Diagnostics Result Diagram: 08/18/168 08/18/16337 X-Rays, CTs and MRIs X-RAY CHEST ONE VIEW, PORTABLE IMPRESSION: 1. No acute cardiopulmonary disease. Dictated by: Heber Mora M.D. on 08/17/2016 at 10:25 Assessment & Plan Lalo Trinh is a 75-year-old male with significant past medical history for end-stage renal disease on hemodialysis dialysis Friday, Friday, and Friday, type II diabetes, hypertension, coronary artery disease status post drug- eluting stents, aortic stenosis status post TAVR, paroxysmal atrial fibrillation with pacemaker placement, and recent history of subarachnoid and subdural hematoma who presents with chest pain. Hospital day 2. 1. Chest pain, present on admission, resolved. - Chest pain lasted for 1-2 hours and resolved as EMS arrived at home. Patient has a long cardiac history including multiple stents, valve replacement, and pacemaker placement. Patient is on ASA and Brilinta which was restarted by Dr. Mclain. - Dr. Albrecht is the patient's research and development director who completed the TAVR. This is likely explained by the patient's recent subdural hematoma in June 2016 but is concerning as the patient has drug-eluting stents. - Initial troponin on admission was 0.943, trending up - Heparin drip was not started due to recent subdural hematoma in June 2016. - Aspirin 81 mg daily. - Atorvastatin 40 mg daily. - Echo showing the anterior anterolateral anteroseptal apex appears relatively hypokinetic which was not seen on a previous echo. - Patient started on heparin drip. - Likely plan is to transfer patient back to [facility] where patient is well known to the cardiology team pending a bed - Cardiology consulted. Appreciate time and expertise. 2. End-stage renal disease on hemodialysis, present on admission, active. - Schedule M/W/F. Patient missed most recent dialysis appointment on 08/16. - On admission BUN and creatinine were 68 and 8.43. - Repeat labs in the morning. - Nephrology following. Appreciate time and expertise. 3. Diabetes mellitus type 2, present on admission, chronic. - Hemoglobin A1c 5.3 on 06/28/16.. - Home regimen includes 20-40 units of Lantus HS. - Will restart patient on Lantus now that he is no longer NPO 4. Leukocytosis, present on admission, active. - Possibly secondary to stress or demarcation. - WBC 13.6 on admission, improving - Asymptomatic and afebrile. - Repeat CBC in the morning. 5. CAD s/p stenting, chronic, presume stable. - Continue atorvastatin 40 mg HS, aspirin 81 mg daily, Brilinta 6. Hypertension, chronic, presume stable. - Continue metoprolol succinate 25 mg daily. 7. Gout, chronic, presume stable. - Continue allopurinol 100 mg daily. 8. Insomnia, chronic, presume stable. - Zolpidem 5 mg available PRN HS. 9. Recent TAVR, presume secondary to aortic stenosis, presume stable. - Patient appears well compensated at this time. - Dr. Albrecht at [facility] was the research and development director. - PCP Hema Phillips - Hospice Clinical Supervisor Marc Lopez - Hotbed Lever Operator Dr. Albrecht Pain Evaluation: Adequate Pain Control Disposition: Possible transfer to [facility] tomorrow or overnight pending a bed. GI Prophylaxis: Not indicated VTE Prophylaxis: SCDs, Other (contraindicated due to recent subdural hematoma) VTE Mechanical Devices: Intermittant Pneumatic CD Resuscitation Status: DNR/DNI:Do Not Resuscitate/Intubate Attending Statement The patient was seen and examined together with Dr. Frias on 08/18/2016 and I agree with the history, exam and plan as outlined in the note above. . Mildred Frias DO Aug 18, 2016 19:39 Dez Grissom MD Aug 20, 2016 14:18
[2016-08-18] MEDS: Insulin LISPRO 300 Unit/3 mL Inj SUBQ SCH (20:29)
[2016-08-18] MEDS: Insulin GLARgine 100 Unit/mL Syringe SUBQ SCH (20:33)
[2016-08-19] VITALS (12 sets, daily range): BP systolic 106–138; BP diastolic 56–80; PULSE 86–128; RESP 12–20; O2SAT 93–100
--- NOTE | 2016-08-19 04:30 | NUR ---
Diarrhea and heparin protocol Patient remained on the cardiac heparin protocol throughout the night without signs of bleeding. Patient denies chest pain and shortness of breath at rest. Patient rested comfortably for most of the evening. Patient had one large loose bowel movement and patient reports that he has chronic bouts of diarrhea. Patient was given Imodium to help decrease the patients diarrhea. Patients vitals remained stable throughout the night.
[2016-08-19 06:08] LABS: BASOPHILS % (AUTO) 0.8 % (0-3); EOSINOPHILS % (AUTO) 5.3 % (0-5); Mean Corpuscular Hemoglobin 31.1 pg (27.0-35.0); Mean Corpuscular Volume 93.7 fL (81-100); NEUTROPHILS % (AUTO) 71.7 % (40-74); Platelet Count 104 bil/L (150-400)
--- NOTE | 2016-08-19 06:25 | NUR ---
Chest pain. Patient placed call light on and informed me that he started having chest pain about 5 minutes earlier. Patient's labs had been draw recently and he reported that he feels his heart rate has increased. Hr in the 120. Patient reports heavy chest pain. Patient denies SOB, N/V and weakness. Patient given 2 does of nitro and reported that his chest pain has resolved. MD Apple is aware of the situation.
[2016-08-19] MEDS: Insulin LISPRO 300 Unit/3 mL Inj SUBQ SCH ×4 (08:00→21:34)
[2016-08-19] MEDS: MeTOProlol XL 25 mg ER24 Tablet PO SCH (08:11)
--- NOTE | 2016-08-19 08:35 | NUR ---
Social Work: Initial Assessment Late Entry from 08/18/16 Data & Assessment: EMR Reviewed. See Initial Assessment. Veterinary Radiologist met with patient at bedside to complete initial assessment, discuss discharge planning and SW role reviewed. Patient is Alert and oriented x 3. Patient has a high re-admit score of 4. Patient is a 75 y/o male that admitted for chest pain resolved and stage four renal. Patient confirmed that his PCP is Dr. Hema Phillips. Patient also confirmed that Medicare is his primary insurance and [employer] supp. is his secondary. Patient does not have VA benefits or LTC insurance. Prior to admission patient lived home alone in a mobile home with 5 steps to enter. Patient is independent with ADLs. Patient has a walker but reported that he only uses it outside of the house. Patient does not have any HH or SNF history. Patient will likely discharge home no needs. Patient states that one of his sons will pick him up when discharged. SW will continue to follow. Plan: Patient will likely discharge home no need via POV. SW will continue to follow. Gayla Carvalho LMSW, TYLER Addendum: 08/19/16 at 0843 by GAYLA LANDAVERDE Amended: Links added.
--- NOTE | 2016-08-19 11:01 | NUR ---
MOC for dialysis/ 12 pm PTT lab draw delayed for after dialysis: Report received from primary RN Gricelda Ivan Patient alert and oriented. At 1045 denied any chest pain. He is on his Heparin drip running at 1025 units/hr. He has a 12 pm PTT lab draw per Heparin drip protocol. Lab and PCC manager intensive care unit called to coordinate lab draw for when patient returns to his room after dialysis. Otherwise labs drawn during dialysis will be inaccurate. break off worker called per patient request to speak with him about potentially transferring to [facility] in [place].
--- NOTE | 2016-08-19 11:17 | DRSVH ---
[facility] [address] [place] [address] Echocardiogram Report Name: ALLY HIRSCH WStudy Date: 08/18/2016 Height: 69 in Hospital Exam Location: [facility] Weight: 170 lb Gender: Male BSA: 1.9 m2 : 1940 Age: 75 yrs BP: 127/67 mmHg Reason For Study: Chest pain Ordering Physician: Performed By: [facility] [place] [facility] Interpretation Summary 1. Mildly dilated left ventricle with mild septal prominence and wall motion abnormalities as noted. Global EF is estimated at 40%. 2. Normal right ventricular size and systolic function. 3. The prosthetic aortic valve is well seated. No insufficiency is appreciated. The mean gradient across the valve is unchanged from the previous echo of 06/29/16 Compared to the previous study of 06/29/16, the apical wall motion abnormalities are new Procedure: A two-dimensional transthoracic echocardiogram with color flow and Doppler was performed. The study quality was technically adequate. Comparison is made with the echocardiogram of 06-29-16. The patient has a paced rhythm. Left Ventricle: There is mild asymmetric left ventricular hypertrophy. The left ventricle is mildly dilated. Left ventricular ejection fraction is estimated to be 40%. Focal wall motion abnormalities affecting the basal inferior wall and inferolateral stark (these were noted on the patient's prior echo). There is hypokinesis of the distal/apical anterior/anteroseptal and possibly anterolateral wall. The apical inferior/inferoseptal wall also appears at least mildly hypokinetic. Diastolic function could not be accurately assessed due to paced rhythm. Right Ventricle: The right ventricle is normal in size and function. There is a pacemaker lead in the right ventricle. Atria: The left atrium is mildly dilated. Right atrial size is normal. No color doppler evidence for an ASD. Mitral Valve: The mitral valve leaflets appear mildly thickened, but open well. There is mild to moderate mitral annular calcification. There is mild mitral regurgitation. Aortic Valve: There is a bioprosthetic aortic valve. No aortic regurgitation is present. Tricuspid Valve: The tricuspid valve leaflets are thin and pliable. There is a trace or physiologic amount of tricuspid regurgitation. The right ventricular systolic pressure is estimated at 24 mmHg assuming a right atrial pressure of 3 mm Hg. Pulmonic Valve: The pulmonic valve is normal in structure and function. There is trace pulmonic regurgitation. Great Vessels: The aortic root is normal size. The ascending aorta is mildly dilated at 3.7 cm. The IVC is of normal diameter and collapses greater than 50% with a sniff. This suggests a low right atrial pressure of 3 mm Hg. Pericardium/ Pleura There is no pericardial effusion. There is no pleural effusion. MMode/2D Measurements & Calculations LVIDd: 6.3 cmLA dimension RA long axis: 5.0 cm LVOT diam: 2.2 cm LVIDs: 5.2 cm AoV Openin.8 cm FS: 17.2 % LA A2 area RA area: 19.1 cm Ao root diam: 2.7 cm IVSd: 1.2 cm RA vol: 61.6 ml Aortic Jxn: 2.6 cm LVPWd RA : 32.0 ml/m asc Aorta Diam: 3.7 cm : 0.8cm LA A4 area RVDd major: 6.1 cm Ao Arch Diam (Proximal trans.): 3.1 cm LA length (vol) LA vol: 78.7 ml LA vol index IVC diam: 2.2 cm LVAd ap4 LVAd ap2 LV kent. diameter/BSA LV sys. diameter/BSA : 32.5 2m : 35.8 cm (cm/m^2): 3.3 (cm/m^2): 2.7 LVLd ap2: 9.1 cm EDV(MOD-sp2) EDV(sp2-el) : 121.1 ml RVD1 (basal) RVD2 (mid) : 3.1 cm Doppler Measurements & Calculations Ao V2 max MV E max devon MV E/A: 0.62 TR max devon : 230.5 cm/sec : 91.5 cm/sec Med Peak E' Devon : 228.7 cm/sec Ao max PG MV A max devon TR max P.9 mmHg : 21.2 mmHg : 146.8 cm/sec E/E' med: 20.7 PA V2 max Ao mean PG MV P1/2t: 71.4 msec Lat Peak E' Devon : 99.7 cm/sec : 11.6 mmHg PA mean P.4 mmHg LVOT Max Devon E/E' lat: 21.7 PA Accel Time : 80.6 cm/sec Pulm A Revs Dur : 0.18 sec SVETLANA(I,D) : 1.3 cm2 MV A dur sev ratio : 0.17 sec MV dec time MV P1/2t max devon Ao V2 mean LV V1 max PG : 0.24 sec : 160.4 cm/sec MVA(P1/2t): 3.1 cm2 Ao V2 VTI LV V1 VTI: 18.5 cm SVETLANA(V,D): 1.3 cm2 PA V2 mean SVETLANA indexed to BSA E/e' average Pulm A Revs Dur - MV : 72.3 cm/sec (cm^2/m^2): 0.70 A Dur: -0.04 msec Reading Physician:02:18 PM
--- NOTE | 2016-08-19 13:32 | PCM.PNMED ---
Subjective Date of Service Aug 19, 2016 Subjective Patient has had some intermittent chest pain last night and this morning usually this is relieved with one nitroglycerin. He is tentatively scheduled to be transferred up to [facility] in [place]. She was seen in the dialysis unit today. Exam Vital Signs Vital Sign - Last Date Time Temp Pulse Resp B/P Pulse Ox O2 Delivery O2 Flow Rate FiO2 08/19/16 11:13 123 08/19/16 07:14 12 138/66 96 08/19/16 06:21 36.7 Room Air 08/17/16 11:47 2.00 Intake and Output 08/18/16 08/18/16 08/19/16 Cumulative From/Thru 15:00 23:00 07:00 08/17/16 07:54 - 08/19/16 06:08 Intake Total 482 ml 237 ml 769 ml Output Total 301 ml 1301 ml Balance 181 ml 237 ml -532 ml Intake Oral 360 ml 237 ml 647 ml IV Total 122 ml 122 ml Output Urine Total 300 ml 300 ml Urine/Stool Mix 1 ml 1 ml Ultrafiltrate 1000 ml # Voids 0 0 # Bowel Movements 1 1 2 Exam Neck is supple without adenopathy thyromegaly or jugular venous distention. Lungs were clear to auscultation. Heart was regular and rhythmical with a soft systolic murmur. Abdomen soft without any tenderness rebound guarding masses or hepatosplenomegaly. Extremities shows a clubbing cyanosis or edema. Lab and Diagnostics Result Diagram: 08/19/16 0810 08/19/16 0557 X-Rays, CTs and MRIs X-RAY CHEST ONE VIEW, PORTABLE IMPRESSION: 1. No acute cardiopulmonary disease. Dictated by: Heber Mora M.D. on 08/17/2016 at 10:25 Assessment & Plan Impression #1 end-stage renal disease dialysis dependent #2 hypertension with hypertensive heart disease and hypertensive nephrosclerosis #3 unstable anginal Recommendations #1 patient to be dialyzed today for his routine orders which include 4 hour treatment on 2 potassium bath standard heparin and approximately 1-2 L of fluid to be removed. Patient is stable for transfer after dialysis. GI Prophylaxis: Not indicated VTE Prophylaxis: SCDs, Other (contraindicated due to recent subdural hematoma) VTE Mechanical Devices: Intermittant Pneumatic CD Resuscitation Status: DNR/DNI:Do Not Resuscitate/Intubate Marek Hernández DO Aug 19, 2016 13:32
--- NOTE | 2016-08-19 14:39 | NUR ---
Dialysis note: 4 hr tx Net UF 1200. Right fistula accessed without difficulty 2 - 15g needles. QB 400 , pt alert and communicative throughout tx. c/o chest pain and one SL 4gm nitro given, pain resolved. 1340 BG 82 and 2- ciera crackers given. Blood returned, needles removed and pt held x 10 min, secured with SS gauze and tape. Please see DTR for complete record of VS. Pt returned to floor stable.
--- NOTE | 2016-08-19 15:05 | PROG NOTE ---
[address] [address] PROGRESS NOTE PATIENT: ALLY HIRSCH : 1940 MR#: [id number] ADMIT: 08/17/2016 JOB ID: [id number] DATE: 08/19/2016 CHIEF COMPLAINT: Chest discomfort. SUBJECTIVE: This gentleman had some chest discomfort. It was well localized, retrosternal. It did not radiate. It lasted for a few minutes. Unfortunately, his EKG is not very helpful because of a paced rhythm. PAST MEDICAL HISTORY: His past cardiac history is very complex. That includes history of TAVR in the last few months, coronary artery disease with stenting in March. He has drug-coated stents. In June, he was admitted to the hospital with subdural hematoma. As per the advice of the neurosurgeon, this was treated conservatively and he was advised to refrain from dual-antiplatelet therapy for two weeks. He also has history of end-stage renal disease, paroxysmal atrial fibrillation and ischemic cardiomyopathy with EF running around 40%. He has a history of biventricular pacemaker insertion in 2015. MEDICATIONS: He is currently on: 1. Aspirin. 2. Ticagrelor. 3. Insulin. 4. Lipitor. 5. Metoprolol. 6. Ambien. 7. Imodium. OBJECTIVE: Comfortable, in no apparent distress, even while he was having chest discomfort. Pulse 90, blood pressure 130/66. Neck supple. No JVD. No bruits. Heart sounds S1, S2, regular. No gallops. Abdomen soft. Extremities: Negative CCE. MOTION PICTURE OPERATOR: Alert and oriented. Chest x-ray was normal. LABORATORY DATA: Shows hemoglobin of 9.7, creatinine of 7, troponin that ranges between 1.3-1.6. ASSESSMENT AND PLAN: This gentleman has complex cardiac history. I have incomplete notes from [place]. The patient believes he was also admitted IN [facility] where he may or may not have had a stress test. Before embarking upon repeating some of his investigations, I would like to have all his records. PLANS: I believe we are also to transfer him back to [place]. The primary care team is leading charge on that. At this point, my recommendation would be to up-titrate his beta- blockers to give him adequate antianginal relief and secondly to obtain his prior records, and if he has not had a recent stress test, I would recommend starting off with a stress test first.
--- NOTE | 2016-08-19 16:56 | NUR ---
Social Work Note: Continued Discharge Planning Data& Assessment: SW met with pt at bedside to discuss discharge planning per pt request. Pt had concerns about private costs associated with hospital transfer transportation. SW explained if he is transferring to another hospital per MD recommendations and request, there should not be a private cost associated with the transportation to another hospital, but he would need to be prepared in case he is billed for transport. SW explained that SW does not coordinate hospital transfers so I cannot say for sure exact details regarding costs. Pt explained he will ask the MD about the potential for him being transferred to [facility] in [place] for continued Cardiac care. Pt denies any other needs at this time. SW to continue to follow. Plan: Anticipated discharge home vs. transfer to [facility] in [place]. Pt denies any other needs at this time. SW to continue to follow. MINA Parisi
--- NOTE | 2016-08-19 17:10 | NUR ---
Chest pain, Dialysis, Stress Test Chest pain - At 0720 he was complaining of 7/10 mid-sternal chest pain. Telemetry revealed [id number]. Given a nitro and an EKG was taken. No significant changes. Dr. Coe notified. Said she would review on rounding, but to please contact the Manager Web about this issue as it has been ongoing since his admit and he is experiencing this pain multiple times throughout the day and night. Paged Dr. Saldivar who came shortly after to assess him. Said he would order a stress test. His pain subsided. Around 0917 and 1135 (in dialysis) he complained of pain again. Given a nitro tablet each time and it resolved after one tablet. Dialysis - He went to dialysis about 0945. He returned about 1500. Was settled back into the room. Stress Test - Upon returning from dialysis he politely declined the stress test explaining how he really just wanted to go to [facility] in [place] so that further testing and treatment can be performed there since his Cardiologists are there and know his case well. Notified Dr. Duron and Dr. Coe. Dr. Duron came to talk to him about this further. The stress test has been cancelled for now. Dr. Coe has been trying to get in contact with the hospital. It appears that they are willing to take him, but that they do not have a bed available. Care continues.
--- NOTE | 2016-08-19 17:15 | PCM.PNMED ---
Subjective Date of Service Aug 19, 2016 Subjective Lalo Trinh is a 75-year-old male with significant past medical history for end-stage renal disease on hemodialysis dialysis Friday, Friday, and Friday, type II diabetes, hypertension, coronary artery disease status post drug- eluting stents, aortic stenosis status post TAVR, paroxysmal atrial fibrillation with pacemaker placement, and recent history of subarachnoid and subdural hematoma who presents with chest pain. Hospital day 3. Overnight: No acute events. Today: The patient endorses chest pain that is relieved with nitroglycerin. He denies any shortness of breath, nausea, vomiting, diaphoresis, or weakness. He should receive dialysis today. Stress test was planned for this afternoon but patient refused and would like to be transferred to [place]. He has contacted his own washery engineer who is attempting to secure a bed for him in [place]. We have called [facility] and they do not have an open bed at this time. ROS is negative otherwise except as noted above. Exam Vital Signs Vital Sign - Last Date Time Temp Pulse Resp B/P Pulse Ox O2 Delivery O2 Flow Rate FiO2 08/19/16 16:39 36.9 92 18 107/62 100 Room Air 08/17/16 11:47 2.00 Intake and Output 08/18/16 08/18/16 08/19/16 Cumulative From/Thru 15:00 23:00 07:00 08/17/16 07:54 - 08/19/16 06:08 Intake Total 482 ml 237 ml 769 ml Output Total 301 ml 1301 ml Balance 181 ml 237 ml -532 ml Intake Oral 360 ml 237 ml 647 ml IV Total 122 ml 122 ml Output Urine Total 300 ml 300 ml Urine/Stool Mix 1 ml 1 ml Ultrafiltrate 1000 ml # Voids 0 0 # Bowel Movements 1 1 2 Exam General: No acute distress, well-developed, well-nourished, appropriately interactive HEENT: Normocephalic, atraumatic. External ears without defect. Pupils equal, round, and reactive to light and accommodation. Anicteric sclerae, moist conjunctivae, and no lid lag. Oropharynx free of erythema and cobble stoning with moist mucosa. Neck: Supple with full range of motion. No jugular venous distension. No bruits. No lymphadenopathy or thyromegaly. Cardiovascular: Regular rate and rhythm with II/IV systolic murmur. Pulmonary: Clear to auscultation bilaterally with no crackles, wheezes, or rhonchi. Normal respiratory effort with no use of accessory muscles. Abdomen: Bowel tones present. Soft, nontender, nondistended. No hepatosplenomegaly or masses appreciated. Extremities: Right arm fistula with palpable pulses. No clubbing, cyanosis, edema, or lymphadenopathy appreciated. Skin: Normal temperature, turgor, and texture; no rash, ulcers, or subcutaneous nodules appreciated. Neurological: Cranial nerves grossly intact. Normal muscle strength, tone, and bulk. Reflexes, coordination, and sensory function within normal limits. No known gait impairment. Psychiatric: Normal mood and affect. Alert and oriented to person, place, and time. Lab and Diagnostics Result Diagram: 08/19/16 0810 08/19/16 0557 X-Rays, CTs and MRIs X-RAY CHEST ONE VIEW, PORTABLE IMPRESSION: 1. No acute cardiopulmonary disease. Dictated by: Heber Mora M.D. on 08/17/2016 at 10:25 Assessment & Plan Lalo Trinh is a 75-year-old male with significant past medical history for end-stage renal disease on hemodialysis dialysis Friday, Friday, and Friday, type II diabetes, hypertension, coronary artery disease status post drug- eluting stents, aortic stenosis status post TAVR, paroxysmal atrial fibrillation with pacemaker placement, and recent history of subarachnoid and subdural hematoma who presents with chest pain. Hospital day 3. 1. Chest pain, present on admission, active. - Chest pain lasted for 1-2 hours and resolved as EMS arrived at home. Pain restarted this morning, 08/19. Patient has a long cardiac history including multiple stents, valve replacement, and pacemaker placement. Patient is on ASA and Brilinta which was restarted by Dr. Mclain. - Dr. Albrecht is the patient's insurance account representative who completed the TAVR. This is likely explained by the patient's recent subdural hematoma in June 2016 but is concerning as the patient has drug-eluting stents. - Initial troponin on admission was 0.943, trending up. - Heparin drip started per cardiology's recommendation. - Aspirin 81 mg daily. - Atorvastatin 40 mg daily. - Echo showing the anterior anterolateral anteroseptal apex appears relatively hypokinetic which was not seen on a previous echo. - Likely plan is to transfer patient back to [facility] where patient is well known to the cardiology team pending a bed. - Cardiology consulted. Appreciate time and expertise. 2. End-stage renal disease on hemodialysis, present on admission, active. - Schedule M/W/F. Patient missed most recent dialysis appointment on 08/16. - On admission BUN and creatinine were 68 and 8.43. - Received dialysis today. - Repeat labs in the morning. - Nephrology following. Appreciate time and expertise. 3. Diabetes mellitus type 2, present on admission, chronic. - Hemoglobin A1c 5.3 on 06/28/16.. - Home regimen includes 20-40 units of Lantus HS. - Will restart patient on Lantus now that he is no longer NPO. 4. Leukocytosis, present on admission, active. - Possibly secondary to stress or demargination. - WBC 13.6 on admission, improving - Asymptomatic and afebrile. - Repeat CBC in the morning. 5. CAD s/p stenting, chronic, presume stable. - Continue atorvastatin 40 mg HS, aspirin 81 mg daily, Brilinta 6. Hypertension, chronic, presume stable. - Continue metoprolol succinate 25 mg daily. 7. Gout, chronic, presume stable. - Continue allopurinol 100 mg daily. 8. Insomnia, chronic, presume stable. - Zolpidem 5 mg available PRN HS. 9. Recent TAVR, presume secondary to aortic stenosis, presume stable. - Patient appears well compensated at this time. - Dr. Albrecht at [facility] was the insurance account representative. - PCP Hema Phillips - Sleeve Fixer Marc Lopez - Software Educator Dr. Albrecht Disposition: Possible transfer to [facility] tomorrow or overnight pending a bed. GI Prophylaxis: Not indicated VTE Prophylaxis: SCDs, Other (contraindicated due to recent subdural hematoma) VTE Mechanical Devices: Intermittant Pneumatic CD Resuscitation Status: DNR/DNI:Do Not Resuscitate/Intubate Attending Statement The patient was seen and examined together with Dr. Coats on 08-19-16 and I agree with the history, exam and plan as outlined in the note above. BRICE COATS DO Aug 19, 2016 17:15 Joshua Mojica MD Aug 20, 2016 14:30
[2016-08-19] MEDS: Heparin 25K Unit/500mL 0.45 NS 25,000 UNIT in IV Premix 1 EACH IV SCH (19:19)
[2016-08-19] MEDS: Insulin GLARgine 100 Unit/mL Syringe SUBQ SCH (21:32)
[2016-08-20] VITALS (11 sets, daily range): BP systolic 102–117; BP diastolic 55–72; PULSE 74–97; RESP 16–18; O2SAT 98–100
[2016-08-20 04:43] LABS: Mean Corpuscular Hemoglobin 30.9 pg (27.0-35.0)
[2016-08-20] MEDS ORDERED: Nitroglycerin 2% 1 Gm Ointment TOPICAL PRN (05:40)
[2016-08-20 06:09] LABS: TROPONIN T 1.28 ug/L (0.0-0.011)
--- NOTE | 2016-08-20 07:26 | NUR ---
Chest Pain/Hypoglycemia seo strategist pt c/o 7/10 midsternal chest pain which radiated slightly up to left elbow. Pt placed on O2, Stat EKG done, though this was paced, reviewed w/ charge rn who saw no significant changes. Vitals stable and pt reported relief after one nitro. Pt stated pain down to 1/10 and continued to lessen, refused additional nitro, fell asleep immediately. MD notified of all this, ordered nitropaste for chest pain prophylaxis, as this was applied pt stated chest pain down to 0/10. Blood sugar 60 when reassessed this morning, was 195 at HS and covered w/ Lantus. Blood sugar normalized x2 after juice/crackers.
[2016-08-20] MEDS: Insulin LISPRO 300 Unit/3 mL Inj SUBQ SCH ×4 (08:00→20:11)
[2016-08-20] MEDS ORDERED: MeTOProlol XL 25 mg ER24 Tablet PO SCH (08:30)
--- NOTE | 2016-08-20 12:22 | PCM.PNMED ---
Subjective Date of Service Aug 20, 2016 Subjective Patient is still awaiting transfer to [facility] in [place]. He has had several episodes last 24 hours of chest pain which has been relieved by sublingual nitroglycerin. Otherwise he denies any shortness of breath, nausea, vomiting, or diaphoresis. Exam Vital Signs Vital Sign - Last Date Time Temp Pulse Resp B/P Pulse Ox O2 Delivery O2 Flow Rate FiO2 08/20/16 11:51 37.1 74 18 108/56 98 Room Air 08/17/16 11:47 2.00 Intake and Output 08/19/16 08/19/16 08/20/16 Cumulative From/Thru 15:00 23:00 07:00 08/17/16 07:54 - 08/20/16 06:11 Intake Total 600 ml 680 ml 2049 ml Output Total 1200 ml 0 ml 2501 ml Balance -1200 ml 600 ml 680 ml -452 ml Intake Oral 250 ml 680 ml 1577 ml IV Total 350 ml 472 ml Output Urine Total 0 ml 300 ml Urine/Stool Mix 1 ml Ultrafiltrate 1200 ml 2200 ml # Voids 1 1 # Bowel Movements 1 1 4 Exam Neck is supple without adenopathy thyromegaly or jugular venous distention. Lungs were clear to auscultation. Heart is regular and rhythmical with a soft systolic murmur. Abdomen is soft without any tenderness rebound guarding masses or hepatosplenomegaly. Extremities/was a clubbing cyanosis or edema. Skin turgor is good is no evidence of any rashes. Lab and Diagnostics Result Diagram: 08/20/16 0401 08/20/16 0401 X-Rays, CTs and MRIs X-RAY CHEST ONE VIEW, PORTABLE IMPRESSION: 1. No acute cardiopulmonary disease. Dictated by: Heber Mora M.D. on 08/17/2016 at 10:25 Assessment & Plan Lalo Trinh is a 75-year-old male with significant past medical history for end-stage renal disease on hemodialysis dialysis Friday, Friday, and Friday, type II diabetes, hypertension, coronary artery disease status post drug- eluting stents, aortic stenosis status post TAVR, paroxysmal atrial fibrillation with pacemaker placement, and recent history of subarachnoid and subdural hematoma who presents with chest pain. Hospital day 3. 1. Chest pain, present on admission, active. - Chest pain lasted for 1-2 hours and resolved as EMS arrived at home. Pain restarted this morning, 08/19. Patient has a long cardiac history including multiple stents, valve replacement, and pacemaker placement. Patient is on ASA and Brilinta which was restarted by Dr. Mclain. - Dr. Albrecht is the patient's matrix supervisor who completed the TAVR. This is likely explained by the patient's recent subdural hematoma in June 2016 but is concerning as the patient has drug-eluting stents. - Initial troponin on admission was 0.943, trending up. - Heparin drip started per cardiology's recommendation. - Aspirin 81 mg daily. - Atorvastatin 40 mg daily. - Echo showing the anterior anterolateral anteroseptal apex appears relatively hypokinetic which was not seen on a previous echo. - Likely plan is to transfer patient back to [facility] where patient is well known to the cardiology team pending a bed. - Cardiology consulted. Appreciate time and expertise. 2. End-stage renal disease on hemodialysis, present on admission, active. - Schedule M//. Patient missed most recent dialysis appointment on 08/16. - On admission BUN and creatinine were 68 and 8.43. - Received dialysis today. - Repeat labs in the morning. - Nephrology following. Appreciate time and expertise. 3. Diabetes mellitus type 2, present on admission, chronic. - Hemoglobin A1c 5.3 on 06/28/16.. - Home regimen includes 20-40 units of Lantus HS. - Will restart patient on Lantus now that he is no longer NPO. 4. Leukocytosis, present on admission, active. - Possibly secondary to stress or demargination. - WBC 13.6 on admission, improving - Asymptomatic and afebrile. - Repeat CBC in the morning. 5. CAD s/p stenting, chronic, presume stable. - Continue atorvastatin 40 mg HS, aspirin 81 mg daily, Brilinta 6. Hypertension, chronic, presume stable. - Continue metoprolol succinate 25 mg daily. 7. Gout, chronic, presume stable. - Continue allopurinol 100 mg daily. 8. Insomnia, chronic, presume stable. - Zolpidem 5 mg available PRN HS. 9. Recent TAVR, presume secondary to aortic stenosis, presume stable. - Patient appears well compensated at this time. - Dr. Albrecht at [facility] was the matrix supervisor. - PCP Hema Phillips - Mixer Foam Rubber Marc Lopez - Cinder Dump Crane Operator Dr. Albrecht Disposition: Possible transfer to [facility] tomorrow or overnight pending a bed. GI Prophylaxis: Not indicated VTE Prophylaxis: SCDs, Other (contraindicated due to recent subdural hematoma) VTE Mechanical Devices: Intermittant Pneumatic CD Resuscitation Status: DNR/DNI:Do Not Resuscitate/Intubate Marek Hernández DO Aug 20, 2016 12:22
--- NOTE | 2016-08-20 12:24 | PCM.PNMED ---
Subjective Date of Service Aug 20, 2016 Subjective Impression #1 end-stage renal disease dialysis dependent #2 unstable angina #3 hypertension with hypertensive heart disease and hypertensive nephrosclerosis Recommendations #1 patient is cleared for transfer 1 over a bed becomes available. If he is stable tomorrow I will make arrangements for his routine dialysis. Exam Vital Signs Vital Sign - Last Date Time Temp Pulse Resp B/P Pulse Ox O2 Delivery O2 Flow Rate FiO2 08/20/16 11:51 37.1 74 18 108/56 98 Room Air 08/17/16 11:47 2.00 Intake and Output 08/19/16 08/19/16 08/20/16 Cumulative From/Thru 15:00 23:00 07:00 08/17/16 07:54 - 08/20/16 06:11 Intake Total 600 ml 680 ml 2049 ml Output Total 1200 ml 0 ml 2501 ml Balance -1200 ml 600 ml 680 ml -452 ml Intake Oral 250 ml 680 ml 1577 ml IV Total 350 ml 472 ml Output Urine Total 0 ml 300 ml Urine/Stool Mix 1 ml Ultrafiltrate 1200 ml 2200 ml # Voids 1 1 # Bowel Movements 1 1 4 Lab and Diagnostics Result Diagram: 08/20/16 0401 08/20/16 0401 X-Rays, CTs and MRIs X-RAY CHEST ONE VIEW, PORTABLE IMPRESSION: 1. No acute cardiopulmonary disease. Dictated by: Heber Mora M.D. on 08/17/2016 at 10:25 Assessment & Plan Lalo Trinh is a 75-year-old male with significant past medical history for end-stage renal disease on hemodialysis dialysis Friday, Friday, and Friday, type II diabetes, hypertension, coronary artery disease status post drug- eluting stents, aortic stenosis status post TAVR, paroxysmal atrial fibrillation with pacemaker placement, and recent history of subarachnoid and subdural hematoma who presents with chest pain. Hospital day 3. 1. Chest pain, present on admission, active. - Chest pain lasted for 1-2 hours and resolved as EMS arrived at home. Pain restarted this morning, 08/19. Patient has a long cardiac history including multiple stents, valve replacement, and pacemaker placement. Patient is on ASA and Brilinta which was restarted by Dr. Mclain. - Dr. Albrecht is the patient's administration intern who completed the TAVR. This is likely explained by the patient's recent subdural hematoma in June 2016 but is concerning as the patient has drug-eluting stents. - Initial troponin on admission was 0.943, trending up. - Heparin drip started per cardiology's recommendation. - Aspirin 81 mg daily. - Atorvastatin 40 mg daily. - Echo showing the anterior anterolateral anteroseptal apex appears relatively hypokinetic which was not seen on a previous echo. - Likely plan is to transfer patient back to [facility] where patient is well known to the cardiology team pending a bed. - Cardiology consulted. Appreciate time and expertise. 2. End-stage renal disease on hemodialysis, present on admission, active. - Schedule M/W/F. Patient missed most recent dialysis appointment on 08/16. - On admission BUN and creatinine were 68 and 8.43. - Received dialysis today. - Repeat labs in the morning. - Nephrology following. Appreciate time and expertise. 3. Diabetes mellitus type 2, present on admission, chronic. - Hemoglobin A1c 5.3 on 06/28/16.. - Home regimen includes 20-40 units of Lantus HS. - Will restart patient on Lantus now that he is no longer NPO. 4. Leukocytosis, present on admission, active. - Possibly secondary to stress or demargination. - WBC 13.6 on admission, improving - Asymptomatic and afebrile. - Repeat CBC in the morning. 5. CAD s/p stenting, chronic, presume stable. - Continue atorvastatin 40 mg HS, aspirin 81 mg daily, Brilinta 6. Hypertension, chronic, presume stable. - Continue metoprolol succinate 25 mg daily. 7. Gout, chronic, presume stable. - Continue allopurinol 100 mg daily. 8. Insomnia, chronic, presume stable. - Zolpidem 5 mg available PRN HS. 9. Recent TAVR, presume secondary to aortic stenosis, presume stable. - Patient appears well compensated at this time. - Dr. Albrecht at [facility] was the administration intern. - PCP Hema Phillips - Senior Science Consultant Marc Lopez - Mechanic Foreman Dr. Albrecht Disposition: Possible transfer to [facility] tomorrow or overnight pending a bed. GI Prophylaxis: Not indicated VTE Prophylaxis: SCDs, Other (contraindicated due to recent subdural hematoma) VTE Mechanical Devices: Intermittant Pneumatic CD Resuscitation Status: DNR/DNI:Do Not Resuscitate/Intubate Marek Hernández DO Aug 20, 2016 12:24
[2016-08-20] MEDS ORDERED: METO-272 PO (14:35)
--- NOTE | 2016-08-20 16:16 | NUR ---
[facility] The kidney center called this morning to ask if he would be discharging and be able to make it to his dialysis appointment tomorrow. This nurse told them that we didn't know the discharge plans yet as there was a possibility of him discharging today. Took the phone number and told them we could call them once we knew. Called and left a message this afternoon to tell them that discharge plans had been cancelled and that he would be spending at least another day/night here so he would receive inpatient dialysis on 08/20/16. The number is . Care continues.
--- NOTE | 2016-08-20 17:00 | NUR ---
Wound Care Wound evaluation order [id number], pt seen at bedside. 75 yo male with hx of DM and renal disease, presents with right fifth toe necrosis that he has been treated by Dr Eddy at [facility] wound center. Apparently patient has vascular intervention pending in [place] and describes having had a nuclear labeled test in [place] which ruled out osteomylitis at his right fifth toe recently. The R 5th toe is with a dry necrotic eschar which encompasses the lateral border of the toe including the nail and dark discoloration of the plantar surface of the toe as well. I can not palpate pulses on this foot but there is hair growth which may be indicative of small vessel disease. I am reluctant to dress this wound with anything which would encourage loosening of this eschar until his vascular workup or intervention is completed. For now recommend betadine moist 2x2 gauze and tape to maintain a dry and bacerially defended wound. Nursing can change this dressing daily.
--- NOTE | 2016-08-20 18:26 | PCM.PNMED ---
Subjective Date of Service Aug 20, 2016 Subjective Lalo Trinh is a 75-year-old male with significant past medical history for end-stage renal disease on hemodialysis dialysis Friday, Friday, and Friday, type II diabetes, hypertension, coronary artery disease status post drug- eluting stents, aortic stenosis status post TAVR, paroxysmal atrial fibrillation with pacemaker placement, and recent history of subarachnoid and subdural hematoma who presents with chest pain. Hospital day 4. Overnight: Patient complained of chest pain that was relieved with nitroglycerin. Patient remained on heparin drip. Today: No chest pain since early in the morning. Discussed with patient that at this time there are no beds available in [place] and that we would like to monitor him for one additional day after discontinuing the heparin drip and optimizing his medications per cardiology's recommendations. Patient is agreeable. ROS is negative otherwise except as noted above. Exam Vital Signs Vital Sign - Last Date Time Temp Pulse Resp B/P Pulse Ox O2 Delivery O2 Flow Rate FiO2 08/20/16 17:04 78 08/20/16 16:31 37.0 18 117/55 98 Room Air 08/17/16 11:47 2.00 Intake and Output 08/19/16 08/19/16 08/20/16 Cumulative From/Thru 15:00 23:00 07:00 08/17/16 07:54 - 08/20/16 06:11 Intake Total 600 ml 680 ml 2049 ml Output Total 1200 ml 0 ml 2501 ml Balance -1200 ml 600 ml 680 ml -452 ml Intake Oral 250 ml 680 ml 1577 ml IV Total 350 ml 472 ml Output Urine Total 0 ml 300 ml Urine/Stool Mix 1 ml Ultrafiltrate 1200 ml 2200 ml # Voids 1 1 # Bowel Movements 1 1 4 Exam General: No acute distress, well-developed, well-nourished, appropriately interactive HEENT: Normocephalic, atraumatic. External ears without defect. Pupils equal, round, and reactive to light and accommodation. Anicteric sclerae, moist conjunctivae, and no lid lag. Oropharynx free of erythema and cobble stoning with moist mucosa. Neck: Supple with full range of motion. No jugular venous distension. No bruits. No lymphadenopathy or thyromegaly. Cardiovascular: Regular rate and rhythm with II/IV systolic murmur. Pulmonary: Clear to auscultation bilaterally with no crackles, wheezes, or rhonchi. Normal respiratory effort with no use of accessory muscles. Abdomen: Bowel tones present. Soft, nontender, nondistended. No hepatosplenomegaly or masses appreciated. Extremities: Right arm fistula with palpable pulses. Right fifth toe with ischemic/necrotic changes. No clubbing, cyanosis, edema, or lymphadenopathy appreciated. Skin: Normal temperature, turgor, and texture; no rash, ulcers, or subcutaneous nodules appreciated. Neurological: Cranial nerves grossly intact. Normal muscle strength, tone, and bulk. Reflexes, coordination, and sensory function within normal limits. No known gait impairment. Psychiatric: Normal mood and affect. Alert and oriented to person, place, and time. Lab and Diagnostics Result Diagram: 08/20/1640008/20/16400 X-Rays, CTs and MRIs X-RAY CHEST ONE VIEW, PORTABLE IMPRESSION: 1. No acute cardiopulmonary disease. Dictated by: Heber Mora M.D. on 08/17/2016 at 10:25 Assessment & Plan Lalo Trinh is a 75-year-old male with significant past medical history for end-stage renal disease on hemodialysis dialysis Friday, Friday, and Friday, type II diabetes, hypertension, coronary artery disease status post drug- eluting stents, aortic stenosis status post TAVR, paroxysmal atrial fibrillation with pacemaker placement, and recent history of subarachnoid and subdural hematoma who presents with chest pain. Hospital day 4. 1. Chest pain, present on admission, active. - Chest pain lasted for 1-2 hours and resolved as EMS arrived at home. Chest pain returned and has been intermittent throughout hospitalization.. Patient has a long cardiac history including multiple stents, valve replacement, and pacemaker placement. Patient is on ASA and Brilinta which was restarted by Dr. Mclain. - Dr. Albrecht is the patient's environmental designer who completed the TAVR. This is likely explained by the patient's recent subdural hematoma in June 2016 but is concerning as the patient has drug-eluting stents. - Initial troponin on admission was 0.943. Troponins trended up initially and have now started to down trend. - Heparin drip stopped on 08/20. - Aspirin 81 mg daily. - Atorvastatin 40 mg daily. - Echo showing the anterior anterolateral anteroseptal apex appears relatively hypokinetic which was not seen on a previous echo. - Cardiology consulted. Appreciate time and expertise. 2. End-stage renal disease on hemodialysis, present on admission, active. - Schedule M/W/F. Patient missed most recent dialysis appointment on 08/16. - On admission BUN and creatinine were 68 and 8.43. - Last dialysis session 08/19. - Repeat labs in the morning. - Nephrology following. Appreciate time and expertise. 3. Diabetes mellitus type 2, present on admission, chronic. - Hemoglobin A1c 5.3 on 06/28/16.. - Home regimen includes 20-40 units of Lantus HS. - Will restart patient on Lantus now that he is no longer NPO. 4. Leukocytosis, present on admission, active. - Possibly secondary to stress or demargination. - WBC 13.6 on admission, improving - Asymptomatic and afebrile. - Repeat CBC in the morning. 5. CAD s/p stenting, chronic, presume stable. - Continue atorvastatin 40 mg HS, aspirin 81 mg daily, Brilinta 6. Hypertension, chronic, presume stable. - Metoprolol succinate increased to 75 mg twice a day. 7. Gout, chronic, presume stable. - Continue allopurinol 100 mg daily. 8. Insomnia, chronic, presume stable. - Zolpidem 5 mg available PRN HS. 9. Recent TAVR, presume secondary to aortic stenosis, presume stable. - Patient appears well compensated at this time. - Dr. Albrecht at [facility] was the environmental designer. - PCP Hema Phillips - Interactive Multimedia Designer Marc Lopez - Accountant Helper Dr. Albrecht Disposition: Possible discharge tomorrow pending resolution of chest pain and uneventful night. Pain Evaluation: Adequate Pain Control GI Prophylaxis: Not indicated VTE Prophylaxis: SCDs VTE Mechanical Devices: Intermittant Pneumatic CD Resuscitation Status: DNR/DNI:Do Not Resuscitate/Intubate Attending Statement The patient was seen and examined together with Dr. Coats on 08-20-16 and I agree with the history, exam and plan as outlined in the note above. BRICE COATS DO Aug 20, 2016 18:26 Joshua Mojica MD Aug 21, 2016 14:46
[2016-08-20] MEDS: MeTOProlol XL 25 mg ER24 Tablet PO SCH (21:39)
[2016-08-20] MEDS ORDERED: Insulin GLARgine 100 Unit/mL Syringe SUBQ SCH (22:17)
[2016-08-21 03:10] VITALS: BP 103/59; PULSE 87; RESP 18; O2SAT 98
[2016-08-21 04:55] LABS: BASOPHILS % (AUTO) 0.7 % (0-3); EOSINOPHILS % (AUTO) 4.2 % (0-5); MONOCYTES % (AUTO) 9.5 % (4-12); Mean Corpuscular Hemoglobin 31.4 pg (27.0-35.0); Mean Corpuscular Volume 93.7 fL (81-100); NEUTROPHILS % (AUTO) 76.1 % (40-74); Platelet Count 114 bil/L (150-400)
[2016-08-21 06:07] LABS: TROPONIN T 1.69 ug/L (0.0-0.011)
[2016-08-21 07:41] VITALS: BP 98/54; PULSE 87; RESP 16; O2SAT 99
[2016-08-21] MEDS: Insulin LISPRO 300 Unit/3 mL Inj SUBQ SCH (08:00)
--- NOTE | 2016-08-21 08:19 | NUR ---
Dialysis Patient off floor for dialysis, report given to Cyndy TOLLIVER.
[2016-08-21 10:28] VITALS: PULSE 80
--- NOTE | 2016-08-21 11:52 | PCM.PNMED ---
Subjective Date of Service Aug 21, 2016 Subjective Patient has had no further chest pain for the last 24 hours. He states he is feeling better and denies any jaw pain nausea vomiting or diaphoresis. Exam Vital Signs Vital Sign - Last Date Time Temp Pulse Resp B/P Pulse Ox O2 Delivery O2 Flow Rate FiO2 08/21/16 10:28 80 08/21/16 07:41 37.3 16 98/54 99 08/21/16 03:10 Room Air 08/17/16 11:47 2.00 Intake and Output 08/20/16 08/20/16 08/21/16 Cumulative From/Thru 15:00 23:00 07:00 08/17/16 07:54 - 08/21/16 05:16 Intake Total 258 ml 482 ml 500 ml 3289 ml Output Total 1 ml 2502 ml Balance 258 ml 482 ml 499 ml 787 ml Intake Oral 320 ml 500 ml 2397 ml IV Total 258 ml 162 ml 892 ml Output Urine Total 1 ml 301 ml Urine/Stool Mix 1 ml Ultrafiltrate 2200 ml # Voids 1 2 # Bowel Movements 1 0 5 Exam Neck is supple without adenopathy thyromegaly or jugular venous distention. Lungs are clear to auscultation. A soft systolic murmur. Abdomen soft without tenderness rebound guarding masses or hepatosplenomegaly. She is not sure Z clubbing cyanosis or edema. Skin turgor is good and there is no evidence of any rashes. Lab and Diagnostics Result Diagram: 08/21/16 0401 08/21/16 0401 X-Rays, CTs and MRIs X-RAY CHEST ONE VIEW, PORTABLE IMPRESSION: 1. No acute cardiopulmonary disease. Dictated by: Heber Mora M.D. on 08/17/2016 at 10:25 Assessment & Plan Impression #1 end-stage renal disease dialysis dependent #2 hypertension with hypertensive heart disease and hypertensive nephrosclerosis Recommendations #1 the patient to dialyze today for his routine treatment for 4 hours, 2 potassium bath, his standard" 100 units in 500 now will take off approximately 2 L of fluid. Following dialysis he can be discharged to primary team. GI Prophylaxis: Not indicated VTE Prophylaxis: SCDs VTE Mechanical Devices: Intermittant Pneumatic CD Resuscitation Status: DNR/DNI:Do Not Resuscitate/Intubate Marek Hernández DO Aug 21, 2016 11:52
--- NOTE | 2016-08-21 12:45 | NUR ---
Dialysis note 4 hr HD tx. 700 ml net UF removed. UF rate adjusted for pts changes in BP, becoming hypotensive at times. See DTR for complete vitals. Off BP 105/52 HR 75. No c/o chest pain during tx. 2 15 g needles to RU fistula. QB 450. Pt rested comfortably thru tx. BG 113 before lunch. Sureseals/clamps X10 mins post tx and pt returned to floor stable. Report given.
--- NOTE | 2016-08-21 13:36 | PCM.DIMED ---
BRICE COATS DO 08/20/16 1447: Discharge Instructions Date of Service Aug 20, 2016 Dates of Hospitalization Aug 17, 2016 at 10:16 Discharge Diagnosis Discharge Diagnosis 1. Chest pain, present on admission, resolved. 2. End-stage renal disease on hemodialysis, present on admission, chronic. 3. Diabetes mellitus type 2, present on admission, chronic. 4. Leukocytosis, present on admission, improved. 5. CAD s/p stenting, chronic, presume stable. 6. Hypertension, chronic, presume stable. 7. Gout, chronic, presume stable. 8. Insomnia, chronic, presume stable. 9. Recent TAVR, presume secondary to aortic stenosis, presume stable. Medication Instructions During your hospitalization your metoprolol was increased to 75 mg twice a day. No other changes were made to your home medication regimen. Diet Heart Healthy, Diabetic Call your provider Fever or Chills, Shortness of breath, Bleeding, Chest pain, Weakness (unilateral ) Patient Instructions - During your hospitalization your were found to have elevated troponin levels from baseline. These values trended down but need further workup. - It is important that you follow up in the next 1-[address] Albrecht your investment fund manager. - Please follow up with Dr. Phillips in the next 4-5 days as well. - If you develop chest pain or shortness of breath please immediately present to the emergency department. Follow-up Provider: Chris Albrecht DO Follow-up with PCP in: Other (Within the next 1-2 days. ) Provider: Hema Phillips MD Follow-up in: Other (2-3 days) Mid-level Provider (F9): Marc Lopez MD Follow-up with Mid-level in: Other (As scheduled. ) Joshua Mojica MD 09/16/16 0921: Discharge Instructions Attending's Statement The patient was seen and examined together with Dr. Coats on 08-21-16 and I agree with the history, exam and plan as outlined in the note above. BRICE COATS DO Aug 20, 2016 14:47 Joshua Mojica MD Sep 16, 2016 09:21
[2016-08-21 13:50] VITALS: BP 101/63; PULSE 72; RESP 18; O2SAT 98
[2016-08-21] MEDS: MeTOProlol XL 25 mg ER24 Tablet PO SCH (14:04)
--- NOTE | 2016-08-21 14:05 | NUR ---
Dialysis to [facility] Patient arrived back to [facility] at approximately 1315. Patient waiting for lunch. Care continues.
--- NOTE | 2016-08-21 15:12 | NUR ---
Discharge Patient discharged at appropriately 1510 to home with son. Patient given discharge material with next dose to be taken clearly written, dated and timed; new prescription, educational material for chest pain, followup appointments with metalsmith and PCP. IV DC'd catheter intact, tele DC'd monitoring engineer notified. Patient acknowledged and understood all information. Patient left with all personal belongings. Patient escorted by SOLVENT PLANT TREATER in wheelchair to the door.
--- NOTE | 2016-08-22 06:18 | PCM.DC.MED ---
Discharge Summary Date of Service Aug 22, 2016 Dates of Hospitalization Date of Hospital Admission Aug 17, 2016 at 10:16 Date of Discharge: Aug 21, 2016 Providers: Admitting Physician: Dez Grissom MD Primary Care Physician: Hema Phillips MD Attending Physician: Dez Grissom MD Diagnosis at Time of Discharge Diagnosis at Time of Discharge 1. Chest pain, present on admission, resolved. 2. End-stage renal disease on hemodialysis, present on admission, chronic. 3. Diabetes mellitus type 2, present on admission, chronic. 4. Leukocytosis, present on admission, improved. 5. CAD s/p stenting, chronic, presume stable. 6. Hypertension, chronic, presume stable. 7. Gout, chronic, presume stable. 8. Insomnia, chronic, presume stable. 9. Recent TAVR, presume secondary to aortic stenosis, presume stable. Consultations Cardiology - Dr. Mclain and Dr. Oreilly Nephrology - Dr. Hernández Procedures XRay, CTs & MRIs X-RAY CHEST ONE VIEW, PORTABLE IMPRESSION: 1. No acute cardiopulmonary disease. Dictated by: Heber Mora M.D. on 08/17/2016 at 10:25 Cardiac Echo Impression Echocardiogram Report Interpretation Summary 1. Mildly dilated left ventricle with mild septal prominence and wall motion abnormalities as noted. Global EF is estimated at 40%. 2. Normal right ventricular size and systolic function. 3. The prosthetic aortic valve is well seated. No insufficiency is appreciated. The mean gradient across the valve is unchanged from the previous echo of 06/29/16 Compared to the previous study of 06/29/16, the apical wall motion abnormalities are new Reading Physician:02:18 PM Brief History Per Dr. Coats's H&P: Lalo Trinh is a 75-year-old male with significant past medical history for end-stage renal disease on hemodialysis dialysis Friday and Friday, type II diabetes, hypertension, coronary artery disease status post drug- eluting stents, aortic stenosis status post TAVR, paroxysmal atrial fibrillation with pacemaker placement, and recent history of subarachnoid and subdural hematoma who presents with chest pain. Chest pain began around 0300 and was described as a tight pressure sensation. He took 3 doses of his nitroglycerin and symptoms resolved. At this time he still called EMS who brought him to the emergency department for further workup. Of note he missed his dialysis session yesterday, 08/16, due to being at [facility] for a rapid heart rate. He states that his rapid heart rate resolved with medications given to him in the emergency department. Patient denies any continued chest pain. He states he is only on aspirin and Plavix was discontinued after being found to have a subdural hematoma in June 2016. He saw his cryogenics repairer Dr. Albrecht 2 weeks ago and there was no mention of restarting the Plavix at that time. Patient's primary care doctor is Dr. Phillips and hot plate plywood press laborer is Dr. Lopez. Patient currently denies any chest pain, palpitations, shortness of breath, nausea, vomiting, diarrhea, fever , chills, or dysuria. On presentation to the emergency department temp was 36.2, pulse was 104, respiratory rate 14, pulse oximetry 100% on room air, blood pressure 131/64. Patient was found to have an elevated troponin of 0. 943 elevated from his baseline of 0.1. BUN and creatinine 68 and 8.43. Leukocytosis of 13.6 and hemoglobin 10.5. Hospital Course Lalo Trinh is a 75-year-old male with significant past medical history for end-stage renal disease on hemodialysis dialysis Friday, Friday, and Friday, type II diabetes, hypertension, coronary artery disease status post drug- eluting stents, aortic stenosis status post TAVR, paroxysmal atrial fibrillation with pacemaker placement, and recent history of subarachnoid and subdural hematoma who presents with chest pain. 1. Chest pain, present on admission, resolved. - Chest pain lasted for 1-2 hours and resolved as EMS arrived at home. Chest pain returned and has been intermittent throughout hospitalization.. Patient has a long cardiac history including multiple stents, valve replacement, and pacemaker placement. Patient is on ASA and Brilinta which was restarted by Dr. Mclain. - Dr. Albrecht is the patient's cryogenics repairer who completed the TAVR. This is likely explained by the patient's recent subdural hematoma in June 2016 but is concerning as the patient has drug-eluting stents. - Initial troponin on admission was 0.943. Troponins trended up initially and have now started to down trend. - Heparin drip stopped on 08/20. - Aspirin 81 mg daily. - Atorvastatin 40 mg daily. - Echo showing the anterior anterolateral anteroseptal apex appears relatively hypokinetic which was not seen on a previous echo. - Cardiology consulted. Appreciated time and expertise. 2. End-stage renal disease on hemodialysis, present on admission, active. - Schedule M/W/F. Patient missed dialysis appointment on 08/16. - On admission BUN and creatinine were 68 and 8.43. - Last dialysis session 08/21. - Nephrology followed. Appreciated time and expertise. 3. Diabetes mellitus type 2, present on admission, chronic. - Hemoglobin A1c 5.3 on 06/28/16.. - Continued home regimen which included 20-40 units of Lantus HS. 4. Leukocytosis, present on admission, active. - Possibly secondary to stress or demargination. - WBC 13.6 on admission. - Asymptomatic and afebrile. 5. CAD s/p stenting, chronic, presume stable. - Continue atorvastatin 40 mg HS, aspirin 81 mg daily, Brilinta 6. Hypertension, chronic, presume stable. - Metoprolol succinate increased to 75 mg twice a day. 7. Gout, chronic, presume stable. - Continue allopurinol 100 mg daily. 8. Insomnia, chronic, presume stable. - Zolpidem 5 mg available PRN HS. 9. Recent TAVR, presume secondary to aortic stenosis, presume stable. - Patient appears well compensated at this time. - Dr. Albrecht at [facility] is patient's cryogenics repairer. Exam Vital Signs (Last) Date Time Temp Pulse Resp B/P Pulse Ox O2 Delivery O2 Flow Rate FiO2 08/21/16 13:50 37.1 72 18 101/63 98 08/21/16 03:10 Room Air 08/17/16 11:47 2.00 Exam General: No acute distress, well-developed, well-nourished, appropriately interactive HEENT: Normocephalic, atraumatic. External ears without defect. Pupils equal, round, and reactive to light and accommodation. Anicteric sclerae, moist conjunctivae, and no lid lag. Oropharynx free of erythema and cobble stoning with moist mucosa. Neck: Supple with full range of motion. No jugular venous distension. No bruits. No lymphadenopathy or thyromegaly. Cardiovascular: Regular rate and rhythm with II/IV systolic murmur. Pulmonary: Clear to auscultation bilaterally with no crackles, wheezes, or rhonchi. Normal respiratory effort with no use of accessory muscles. Abdomen: Bowel tones present. Soft, nontender, nondistended. No hepatosplenomegaly or masses appreciated. Extremities: Right arm fistula with palpable pulses. Right fifth toe with ischemic/necrotic changes. No clubbing, cyanosis, edema, or lymphadenopathy appreciated. Skin: Normal temperature, turgor, and texture; no rash, ulcers, or subcutaneous nodules appreciated. Neurological: Cranial nerves grossly intact. Normal muscle strength, tone, and bulk. Reflexes, coordination, and sensory function within normal limits. No known gait impairment. Psychiatric: Normal mood and affect. Alert and oriented to person, place, and time. Test 08/17/16 05:35 08/17/16 07:54 08/17/16 08:43 08/17/16 18:00 Total Creatine Kinase 55U/L (21-232) Creatine Kinase MB 8.1ng/mL (0.0-10.4) Creatine Kinase MB % 14.7% (0.0-5.0) Hemoglobin A1c 5.8% (4.8-5.6) Hold Del Valle Top Tube Received (Received) Hold Blue Top Tube Received (Received) Test 08/18/16 03:38 08/20/16 10:20 08/21/16 04:01 08/21/16 08:30 Magnesium Level 1.8mg/dL (1.6-2.6) Activated Partial Thromboplast Time 75.9sec (22.8-33.0) White Blood Count 15.9th/mm3 (3.8-10.1) Red Blood Count 3.18mil/mm3 (4.40-5.80) Hemoglobin 10.0g/dL (13.8-17.2) Hematocrit 29.8% (41.0-50.0) Mean Corpuscular Volume 93.7fL (81-100) Mean Corpuscular Hemoglobin 31.4pg (27.0-35.0) Mean Corpuscular Hemoglobin Concent 33.6% (32.0-37.0) Red Cell Distribution Width 17.5% (12.3-15.4) Platelet Count 114bil/L (150-400) Neutrophils (%) (Auto) 76.1% (40-74) Lymphocytes (%) (Auto) 9.1% (14-46) Monocytes (%) (Auto) 9.5% (4-12) Eosinophils (%) (Auto) 4.2% (0-5) Basophils (%) (Auto) 0.7% (0-3) Sodium Level 137mEq/L (134-144) Potassium Level 4.8mEq/L (3.5-5.2) Chloride Level 97mEq/L (97-108) Carbon Dioxide Level 18mmol/L (18-29) Blood Urea Nitrogen 35mg/dL (8-27) Creatinine 6.68mg/dL (0.76-1.27) Estimat Glomerular Filtration Rate 9mL/min (>59) Glucose Level 136mg/dL (60-99) Calcium Level 9.4mg/dL (8.5-10.1) Total Bilirubin 0.5mg/dL (0.0-1.2) Aspartate Amino Transf (AST/SGOT) 20U/L (0-50) Alanine Aminotransferase (ALT/SGPT) 14U/L (0-44) Alkaline Phosphatase 87U/L (25-160) Troponin T 1.69ug/L (0.0-0.011) Total Protein 5.5g/dL (6.4-8.4) Albumin 2.9g/dL (3.4-5.0) Procalcitonin 0.55ng/mL (See Comment) Discharge Medications Discharge Medications Allopurinol (Allopurinol) 100 Mg Tablet 100 MG PO DAILY (Reported) Aspirin (Aspirin) 81 Mg Tablet 81 MG PO DAILY (Reported) Atorvastatin Calcium (Atorvastatin Calcium) 40 Mg Tablet 40 MG PO DAILY ( Reported) Cholecalciferol (Vitamin D3) (Vitamin D) 1,000 Unit Capsule 1,000 UNIT PO DAILY (Reported) Insulin Glargine (Lantus U100 Solostar Insulin Pen) 100 Unit/1 Ml Insuln.pen 40 UNITS SUBQ HS (Reported) Metoprolol Succinate ER (Metoprolol Succinate ER) 50 Mg Tab.er.24h 75 MG PO BID Prescribed by: BRICE COATS DO Niacin ER (Niacin ER) 500 Mg Tablet 500 MG PO DAILY (Reported) Sevelamer Carbonate (Renvela) 800 Mg Tablet 800 MG PO TIDWM (Reported) Ticagrelor (Brilinta) 90 Mg Tablet 90 MG PO BID (Reported) As needed Hydrocodone-Acetaminophen 5-325 mg (Hydrocodone-Acetaminophen 5-325 mg) 1 Each Tablet 1 EACH PO Q4H PRN PRN For Pain (Reported) Nitroglycerin SL (Nitrostat) 0.4 Mg Tab.subl 0.4 MG SL Q5MIN PRN PRN For Pain ( Reported) Ondansetron (Ondansetron) 4 Mg Tablet 4 MG PO QID PRN PRN For Nausea (Reported) Zolpidem (Zolpidem) 5 Mg Tablet 5 MG PO HS PRN PRN Insomnia (Reported) diphenhydrAMINE HCl (Benadryl) 25 Mg Capsule 25 MG PO Q4 PRN PRN For Itching ( Reported) Additional med instructions During your hospitalization your metoprolol was increased to 75 mg twice a day. No other changes were made to your home medication regimen. Followup Plan Discharge Diet: Heart Healthy, Diabetic Patient Instructions - During your hospitalization your were found to have elevated troponin levels from baseline. These values trended down but need further workup. - It is important that you follow up in the next 1-[address] Albrecht your cryogenics repairer. - Please follow up with Dr. Phillips in the next 4-5 days as well. - If you develop chest pain or shortness of breath please immediately present to the emergency department. Follow-up Provider: Chris Albrecht DO Follow-up with PCP in: Other (Within the next 1-2 days. ) Provider: Hema Phillips MD Follow-up in: Other (2-3 days) Mid-level Provider: Marc Lopez MD Follow-up with Mid-level in: Other (As scheduled. ) Attending Statement The patient was seen and examined together with Dr. Coats on 08-21-16 and I agree with the history, exam and plan as outlined in the note above. copies to: Chris Albrecht DO; Hema Phillips MD; Marc Lopez MD, BETHANY A DO Aug 22, 2016 06:18 Joshua Mojica MD Sep 16, 2016 09:22
== END 2016-08-21 15:20 | disposition home or self-care (01) | DRG 190 ==
LOC: SED 07:30 → PCC 10:16
PROVIDERS: ADMIT Internal Medicine; ATTEND Internal Medicine
PROC: 5A1D60Z (ICD-10-PCS; principal; 2016-08-17)
DX: I21.4 Non-ST elevation (NSTEMI) myocardial infarction (principal); N18.6 End stage renal disease; I12.0 Hypertensive chronic kidney disease with stage 5 chronic kidney disease or end stage renal disease; Z99.2 Dependence on renal dialysis; Z91.15 Patient's noncompliance with renal dialysis; Z79.82 Long term (current) use of aspirin; Z79.4 Long term (current) use of insulin; Z95.2 Presence of prosthetic heart valve; Z95.0 Presence of cardiac pacemaker; Z98.61 Coronary angioplasty status; E11.9 Type 2 diabetes mellitus without complications; I25.10 Atherosclerotic heart disease of native coronary artery without angina pectoris; M10.9 Gout, unspecified; G47.00 Insomnia, unspecified; I35.0 Nonrheumatic aortic (valve) stenosis; Z66 Do not resuscitate

== ENCOUNTER 2016-08-23 01:47 | Emergency (ER) | payer MEDICARE, OTHER ==
[~2016-08-23] VITALS: Ht 175.3 cm; Wt 79.5 kg
[~2016-08-23 01:47] MED LIST changes: +METO-272 PO; -METO25TA99 PO; +NITR0.4T SL
[2016-08-23 02:02] VITALS: BP 109/50; PULSE 88; RESP 16; O2SAT 100
[2016-08-23 02:48] LABS: BASOPHILS % (AUTO) 0.6 % (0-3); EOSINOPHILS % (AUTO) 2.5 % (0-5); MONOCYTES % (AUTO) 7.9 % (4-12); Mean Corpuscular Hemoglobin 31.2 pg (27.0-35.0); Mean Corpuscular Volume 95.3 fL (81-100); Platelet Count 125 bil/L (150-400)
--- NOTE | 2016-08-23 03:15 | ED.REPORT ---
HPI-Chest Pain 40 and Over Date of Service Aug 23, 2016 ED Provider: Mykel Crane MD Pt is a 75 y/o male w/ a hx of ESRD on hemodialysis (M W F), ischemic cardiomyopathy, CAD s/p stenting, aortic valve replacement, A-Fib, DM, HTN, presenting to the ED via EMS c/o CP onset 1 hr prior to arrival. The pt was recently discharged from here after being admitted Aug 17- for chest pain. During that visit, chest x-ray was negative, troponins trended up initially but ended up down trending, heparin drip was stopped on Aug 20, echocardiogram showed "anterior anterolateral anteroseptal apex appears relatively hypokinetic which was not seen on a previous echo". He denies increased lower extremity edema, SOB, diaphoresis, nausea, vomiting, fever, chills. Nursing Notes Stated Complaint: CHEST PAIN Chief Complaint: Chest Pain Nursing Notes Reviewed: Yes Allergies: Coded Allergies: clopidogrel (Verified Allergy, Unknown, 06/28/16) per med.records from [facility] Scheduled Allopurinol (Allopurinol) 100 Mg Tablet 100 MG PO DAILY Aspirin (Aspirin) 81 Mg Tablet 81 MG PO DAILY Atorvastatin Calcium (Atorvastatin Calcium) 40 Mg Tablet 40 MG PO DAILY Cholecalciferol (Vitamin D3) (Vitamin D) 1,000 Unit Capsule 1,000 UNIT PO DAILY Insulin Glargine (Lantus U100 Solostar Insulin Pen) 100 Unit/1 Ml Insuln.pen 40 UNITS SUBQ HS Metoprolol Succinate ER (Metoprolol Succinate ER) 50 Mg Tab.er.24h 75 MG PO BID Niacin ER (Niacin ER) 500 Mg Tablet 500 MG PO DAILY Sevelamer Carbonate (Renvela) 800 Mg Tablet 800 MG PO TIDWM Ticagrelor (Brilinta) 90 Mg Tablet 90 MG PO BID Scheduled PRN Hydrocodone-Acetaminophen 5-325 mg (Hydrocodone-Acetaminophen 5-325 mg) 1 Each Tablet 1 EACH PO Q4H PRN PRN For Pain Nitroglycerin SL (Nitrostat) 0.4 Mg Tab.subl 0.4 MG SL Q5MIN PRN PRN For Pain Ondansetron (Ondansetron) 4 Mg Tablet 4 MG PO QID PRN PRN For Nausea Zolpidem (Zolpidem) 5 Mg Tablet 5 MG PO HS PRN PRN Insomnia diphenhydrAMINE HCl (Benadryl) 25 Mg Capsule 25 MG PO Q4 PRN PRN For Itching General Time Seen by MD: 03:04 Chief Complaint Chest pain Hx Obtained From: Patient Arrived By: Walk-in Sudden in Onset?: Yes Onset Occurred: 1 - 4 hours ago Symptom Duration: Since onset Location: : Substernal Quality: Painful Severity: Current: Mild Severity: Maximum: Moderate Recent Healthcare: Recent doctor visit, Recent hospitalization, Recent testing , Previous diagnosis, Prior workup Similar Sx Previous: Yes Past Medical History Past Medical History Subarachnoid and subdural hematoma, hospitalized at [facility] in [place]. Hypertension Recent transcatheter aortic valve replacement Diabetes mellitus End-stage renal disease, on hemodialysis History of heart block, s/p pacemaker placement Paroxysmal atrial fibrillation Ischemic cardiomyopathy Hx aortic stenosis s/p aortic valve replacement Coronary artery disease Chronic gout Past Surgical History Aortic valve replacement Cardiac stenting Family History Noncontributory Smoking History Never Smoker Social History Lives in [place] Alcohol Use: Denies alcohol use Drug Use: Denies drug use Other Social History: Good social support, Lives alone Ambulatory Status Independent Review of Systems Constitutional: Denies: Chills, Fever Respiratory: Denies: Non-productive cough, Shortness of breath Cardiovascular: Reports: Chest pain, Denies: Dyspnea on exertion, Edema GI: Denies: Abdominal pain, Nausea, Vomiting Skin: Denies Diaphoresis Complete sys rev & neg: except as marked. Physical Exam Initial Vital Signs Vital Signs (First) Date Time Temp Pulse Resp B/P Pulse Ox O2 Delivery O2 Flow Rate FiO2 08/23/16 02:02 36.4 88 16 109/50 100 Room Air Initial VS: Reviewed, Vital signs normal Head / Eyes: Atraumatic, Normocephalic, PERRL ENT: Mucous membranes moist, Conjunctiva normal, No scleral icterus Extremities: Vascular intact, Neuro intact, No swelling, No tenderness Skin: Warm, Dry, No cyanosis Neurologic: Alert, Oriented, Nonfocal Psychiatric: Mood/affect normal, Behavior normal, Normal thought content General/Constitutional: Awake, Alert, No acute distress, Well appearing, Well hydrated, Cooperative, Not toxic appearing Respiratory / Chest: Atraumatic, Breath sounds NL, Breath sounds = bilat, No respiratory distress, No rales, No rhonchi, No wheezing, No retractions, No stridor, No chest tenderness, No chest wall deformity, No crepitus Cardiovascular: Heart rate NL, Regular rhythm, Heart sounds NL, No gallop, No murmurs, No rubs, Cap refill not delayed, Peripheral circulation NL Abdomen: Atraumatic, Soft, Non-tender Neck: Atraumatic, Supple, No meningismus, Full range of motion, No JVD Interpretation & Diagnostics Lab Results Interpretation Result Diagram: 08/23/16 0235 08/23/16 0235 Test 08/23/16 02:35 08/23/16 06:26 White Blood Count 11.7th/mm3 (3.8-10.1) Red Blood Count 2.95mil/mm3 (4.40-5.80) Hemoglobin 9.2g/dL (13.8-17.2) Hematocrit 28.1% (41.0-50.0) Mean Corpuscular Volume 95.3fL (81-100) Mean Corpuscular Hemoglobin 31.2pg (27.0-35.0) Mean Corpuscular Hemoglobin Concent 32.7% (32.0-37.0) Red Cell Distribution Width 16.9% (12.3-15.4) Platelet Count 125bil/L (150-400) Neutrophils (%) (Auto) 76.0% (40-74) Lymphocytes (%) (Auto) 12.7% (14-46) Monocytes (%) (Auto) 7.9% (4-12) Eosinophils (%) (Auto) 2.5% (0-5) Basophils (%) (Auto) 0.6% (0-3) Sodium Level 140mEq/L (134-144) Potassium Level 3.5mEq/L (3.5-5.2) Chloride Level 95mEq/L (97-108) Carbon Dioxide Level 26mmol/L (18-29) Blood Urea Nitrogen 55mg/dL (8-27) Creatinine 7.05mg/dL (0.76-1.27) Estimat Glomerular Filtration Rate 8mL/min (>59) Glucose Level 198mg/dL (60-99) Calcium Level 9.9mg/dL (8.5-10.1) Magnesium Level 2.2mg/dL (1.6-2.6) Total Bilirubin 0.3mg/dL (0.0-1.2) Aspartate Amino Transf (AST/SGOT) 43U/L (0-50) Alanine Aminotransferase (ALT/SGPT) 19U/L (0-44) Alkaline Phosphatase 101U/L (25-160) Total Protein 5.9g/dL (6.4-8.4) Albumin 3.4g/dL (3.4-5.0) Hold Del Valle Top Tube Received (Received) Lab Results Interpretation: Anemia, chronic renal failure, hyperglycemia, and elevated troponin. ECG Interpretation ECG Interpretation: Atrial sensed ventricularly paced rhythm rate 86 Time: 03:56 Interpreted by: ED physician Normal ECG Interpretation: No acute ischemic changes X-Ray Chest Interpretation View: Portable, 1 view Interpretation / Wet Read by: Wet read ED physician NL X-Ray Chest Findings: No infiltrate, No acute disease Re-Eval/Medical Decision Med Decision/Clinical Course This patient was initially evaluated by me. He was found to have an elevated troponin, somewhat higher than upon discharge. EKG was normal. He is scheduled for dialysis here later today. It was decided to repeat his troponin at 4 hours to see if was actually trending up or just a result of his renal failure. His care is being turned over change of shift to Dr. Bedolla to follow up the results and discuss with cardiology. Time of Eval: 05:59 Re-Evaluation/Progress Note: Pt rechecked. Sleeping comfortably. Will trend trop at 0630 and admit if uptrending. He needs to be dced prior to 1230 which is when his dialysis treatment is. Counseled Regarding: Diagnosis, Lab results, Need for follow-up, When/why to return to ED Discharge & Departure Primary Impression: Chest pain Disposition: Home Discharge Condition All VS Reviewed: Yes Condition: Stable Referrals: Hema Phillips MD (PCP) Scribe Attestation Portions of this note were transcribed by Anam Musa. I, Dr. Crane personally performed the history, physical exam and medical decision-making; I reviewed and confirmed the accuracy of the information in the transcribed note. Signed by Gabriele Rubi, 08/23/16 - 0600 copies to: Hema Phillips MD, Howard L MD Aug 23, 2016 03:15 ANAM MUSA Aug 23, 2016 03:52
[2016-08-23 03:46] VITALS: BP 106/57; PULSE 92; RESP 16; O2SAT 97
[2016-08-23 03:50] LABS: TROPONIN T 2.43 ug/L (0.0-0.011)
[2016-08-23 04:22] LABS: Magnesium 2.2 mg/dL (1.6-2.6)
[2016-08-23 06:33] VITALS: BP 106/65; PULSE 94; RESP 16; O2SAT 98
[2016-08-23] MEDS ORDERED: Heparin 5,000 Unit/mL Inj IVPUSH ONE (07:40)
[2016-08-23] MEDS ORDERED: Heparin 25K Unit/500mL 0.45 NS 25,000 UNIT in IV Premix 1 EACH IV ONE (07:40)
[2016-08-23] MEDS ORDERED: MeTOProlol XL 50 mg ER24 Tablet PO ONE (08:00)
[2016-08-23] MEDS ORDERED: MeTOProlol XL 25 mg ER24 Tablet PO ONE (08:00)
--- NOTE | 2016-08-23 08:32 | DRSVH ---
PROCEDURE: X-RAY CHEST ONE VIEW, PORTABLE ([id number]) INDICATIONS: chest pain TECHNIQUE: One view of the chest was acquired. COMPARISON: [facility], CR, XR CHEST 1VW (PORTABLE), 08/17/2016, 7:33. FINDINGS: Surgical changes and devices: 3-lead cardiac pacer is unchanged. Valvular devices unchanged. Lungs and pleura: No pleural effusions or pneumothorax. Lungs are clear. Mediastinum: Mediastinal contours appear normal. Heart size is normal. Bones and chest wall: No suspicious bony lesions. Overlying soft tissues appear unremarkable. IMPRESSION: No acute cardiopulmonary findings. Dictated by: Tika Grey M.D. on 08/23/2016 at 8:31 Approved by: Tika Gery M.D. on 08/23/2016 at 8:31
[2016-08-23 10:00] VITALS: BP 105/52; PULSE 82; RESP 14; O2SAT 97
[2016-08-23 10:30] VITALS: BP 107/59; PULSE 85; RESP 17; O2SAT 98
--- NOTE | 2016-08-23 10:33 | NUR ---
STATUS UPDATE VERBAL ORDER FROM DR. BARRIOS TO STOP HEPARIN DRIP AT 15:00, PRIOR TO GOING TO SAMPLE CHECKER. PT WILL BE NPO, BG TO BE CHECKED Q6H.
--- NOTE | 2016-08-23 10:46 | NUR ---
BG BG 77, PT STATES NORMALLY RUNS AROUND 110. PT IS NPO. WILL NOTIFY
--- NOTE | 2016-08-23 11:01 | NUR ---
TRANSFER REPORT CALLED TO SHAREE MITCHELL AT [facility] IN [place]. TRANSFER PAPERWORK COMPLETE, UNIT ASSISTANCE SCHEDULE TRANSPORTATION ACID ADJUSTER.
--- NOTE | 2016-08-23 11:02 | NUR ---
BG VERBAL ORDER FROM DR. NORMAN FOR 4OZ CRAN/APPLE JUICE PO NOW FOR BG 77. PT STATES ASYMPTOMATIC. HEPARIN DRIP INFUSING AT 20ML/HR., ORDERED.
--- NOTE | 2016-08-23 11:27 | NUR ---
BG PRIOR TO TRANSFER TO [facility], BG 96. TRANSPORT LEFT NOW.
--- NOTE | 2016-08-23 11:36 | CONS ---
[address] [address] CONSULTATION REPORT PATIENT: ALLY HIRSCH : 1940 MR#: [id number] ADMIT: 08/23/2016 JOB ID: [id number] CORRECTED REPORT: DATE OF SERVICE: 08/23/2016 CARDIOLOGY CONSULTATION: The patient is a very pleasant 75-year-old gentleman with a long history of diabetes with chronic renal failure, dialysis dependent, who also has a complex history of ischemic heart disease and valvular heart disease and presents two days after recent hospital discharge with recurrent non ST elevation ME. 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 In March 2016, he underwent stenting to his mid LAD and mid right coronary artery with a drug-coated stents. He was intolerant to Plavix in the past because of diffuse rash and itching. He also has a history of paroxysmal atrial fibrillation and underwent TAVR procedure for severe aortic stenosis in April of last year complicated by high-degree AV block requiring pacemaker placement two days later. The patient states that ever since his TAVR procedure in April he has noticed a significant worsening in his sense of dizziness or gait imbalance. On June 11 he presented with severe headaches after he had fallen and hit his head three days previously. A CT scan found bilateral subdural hematomas and a small subarachnoid hemorrhage. His anti-platelet agents were stopped for two weeks and restarted around late June and he has done subsequently well without recurrent neurologic issues. He was admitted to our hospital August 17 with evidence of a non ST-segment elevation ME, but on medical therapy, became pain free. It was felt that he would benefit from cardiac catheterization and intervention in [place] because of his complicated history. Therefore, he was discharged home on August 21 and presented again early this morning with recurrent pain. The patient states that about 10:30 last night he developed symptoms of recurrent anginal discomfort which was mild-to- moderate but not severe. He only had one nitroglycerin tablet available and so he did not take it immediately, but because the discomfort persisted and seemed to worsen a little bit early this morning, he took the nitroglycerin without consistent relief and, therefore, contacted the ambulance service. He was given a second sublingual nitroglycerin in the ambulance on the way to the hospital here and his chest discomfort has resolved. He denies any significant symptoms of dyspnea, nausea, vomiting or diaphoresis. Currently he states he is feeling well. PAST MEDICAL HISTORY: Is again notable for: 1. Insulin-dependent diabetes. 2. Chronic renal failure. He has been on dialysis with a right arm fistula for the past couple of years. 3. He has a history of gangrenous right 5th toe and significant peripheral arterial disease [facility] closely [facility] [place]. 4. He has had a history of paroxysmal atrial fibrillation but is not on Coumadin for obvious reasons. Medications listed at his visit with his primary director correctional agency, Dr. Albrecht, in [place] on August 02 included: 1. Allopurinol 100 mg daily. 2. Aspirin 81 mg daily. 3. Atorvastatin 40 mg daily. 4. Depakote 500 mg daily. 5. Doxycycline 100 mg daily. 6. He takes Lantus insulin in the evening. The records suggest that he was taking 40 units but he states that he is currently just taking 15 units. 7. He takes metoprolol succinate 25 mg daily. 8. Niaspan 500 mg daily. 9. Renvela 800 mg t.i.d. 10. Brilinta 90 mg b.i.d. 11. Ambien 5 mg as needed. SOCIAL HISTORY: This gentleman is single. He lives by himself in [place]. His friends and family here are concerned about his need for some type of a long-term assisted living given his complex medical problems. He is a nonsmoker. REVIEW OF SYSTEMS: Is notable for a 40 pounds weight loss over the past year with symptoms of moderate anorexia. He denies any headache. As mentioned in the history above, he does have a significant worsening in his sense of balance since the TAVR procedure in April, so I wonder about the possibility of cerebellar stroke. He has symptoms of diabetic peripheral neuropathy. Denies any history of GI bleeding. His vital signs, this patient's blood pressure has generally been ranging in the 100-110 range systolic. Pulse oximetry is normal on room air. He has evidence of a ventricularly paced rhythm on occasion with paroxysms of atrial tachycardia or atrial fibrillation. He is afebrile and with a normal respiratory rate. HEENT examination is unremarkable. His jugular venous pressure is normal. Carotid upstroke is normal and I hear no carotid bruits. Lung sahni are clear anteriorly. Cardiac examination is notable for an irregularly irregular rhythm intermittently. There is the impression of a very soft S3 gallop at the apex and a very soft aortic systolic ejection murmur. I do not hear a diastolic murmur. Abdomen shows umbilical hernia. No abdominal bruits or evidence of aortic enlargement. Right groin looks normal from his previous TAVR procedure with a good palpable pulse and no bruit. He has palpable popliteal pulses bilaterally but absent distal pedal pulses. His right 5th toe is bandaged. LABORATORY: Is notable for a hemoglobin of 9.2, hematocrit of 28.1, platelet count of 125,000 and white count of 11.7 thousand. Chemistries show a potassium of 3.4. Creatinine is 7.0. BUN of 55. Blood sugar 198. Troponin level 2.43, increasing to 3.34. Transaminases are normal. Chest x-ray, by report, no acute changes. The patient does have a three lead cardiac pacemaker so it is a biventricular device. IMPRESSION: Non ST elevation myocardial infarction. This gentleman appears on his most recent echocardiogram to have a new anteroapical or septal apical wall motion abnormality that might suggest that his current ischemic substrate is his LAD. Diagnostic coronary angiography is indicated. Our cath laboratory at this point in time is full and not able to accommodate him until late this afternoon and I have just heard from Dr. Corazon Jimenez in the emergency department that he has been accepted in transfer to [facility] in [place] and, therefore, the patient will be transferred which is the patient's desire as well and diagnostic coronary angiography can be performed at their institution. This gentleman remains on heparin which I think is fine and can be continued in transfer. His playground monitor shows paroxysms of supraventricular tachycardia and his beta ivan therapy should probably be augmented. He is currently comfortable and resting pain free. I think it is suitable for transfer to [facility]. It makes sense for him to undergo angiography and possible intervention there given his complex history and previous interventions there. I appreciate the opportunity of seeing the patient and wish him well. Corrected by GS 08/29/16 at 1:29pm Corrected account.
== END 2016-08-23 11:52 | disposition short-term general hospital (02) ==
LOC: SED 01:47 → UNDOADMIN 09:16 → OFED 09:16 → SED 11:52
DX: R07.2 Precordial pain (principal); I13.11 Hypertensive heart and chronic kidney disease without heart failure, with stage 5 chronic kidney disease, or end stage renal disease; I21.4 Non-ST elevation (NSTEMI) myocardial infarction; N18.6 End stage renal disease; E11.59 Type 2 diabetes mellitus with other circulatory complications; I25.10 Atherosclerotic heart disease of native coronary artery without angina pectoris; I48.0 Paroxysmal atrial fibrillation; I25.5 Ischemic cardiomyopathy; Z99.2 Dependence on renal dialysis; Z95.2 Presence of prosthetic heart valve; Z95.5 Presence of coronary angioplasty implant and graft; Z79.01 Long term (current) use of anticoagulants; Z79.4 Long term (current) use of insulin; Z88.8 Allergy status to other drugs, medicaments and biological substances
CPT/HCPCS: 36415; 71010; 80053; 83735; 84484; 85025; 85730; 90791; 93005; 96374; 99291; J1644

== ENCOUNTER 2016-10-20 03:54 | Inpatient (IN) | payer MEDICARE, OTHER ==
[2016-10-20] VITALS (9 sets, daily range): BP systolic 122–135; BP diastolic 54–70; PULSE 67–90; RESP 16–21; O2SAT 96–100
[~2016-10-20] VITALS: Ht 175.3 cm; Wt 77.9 kg
--- NOTE | 2016-10-20 04:09 | ED.REPORT ---
HPI-Chest Pain 40 and Over Date of Service Oct 20, 2016 ED Provider: Dr. Slade Chappell M.D. A 75 year old male with a medical history including hypertension, diabetes, ESRD on hemodialysis, CAD, atrial fibrillation, peripheral arterial disease, and recent non-STEMI (08/2016) s/p cardiac stenting and pacemaker placement presents to the ED with left-sided chest pain onset 1999 last night. The patient has taken Nitro x4 since onset of symptoms, most recently 1.5 hours ago. Each Nitro provided short-term relief of pain. The patient denies shortness of breath, diaphoresis, nausea, melena, hematochezia, or other symptoms. EMS found the patient with a BP of 142/71 and otherwise normal vital signs. He was given ASA 324mg en route. Te patient had been pain-free since his recent non-STEMI until last night. Nursing Notes Stated Complaint: CHEST PAIN Chief Complaint: Chest Pain Nursing Notes Reviewed: Yes Allergies: Coded Allergies: clopidogrel (Verified Allergy, Intermediate, per patient broke out in a rash, 10/20/16) per med[facility]records from [facility] Scheduled Allopurinol (Allopurinol) 100 Mg Tablet 100 MG PO DAILY Aspirin (Aspirin) 81 Mg Tablet 81 MG PO DAILY Atorvastatin Calcium (Atorvastatin Calcium) 40 Mg Tablet 40 MG PO DAILY Cholecalciferol (Vitamin D3) (Vitamin D) 1,000 Unit Capsule 1,000 UNIT PO DAILY Insulin Glargine (Lantus U100 Solostar Insulin Pen) 100 Unit/1 Ml Insuln.pen 40 UNITS SUBQ HS Metoprolol Succinate ER (Metoprolol Succinate ER) 50 Mg Tab.er.24h 75 MG PO BID Niacin ER (Niacin ER) 500 Mg Tablet 500 MG PO DAILY Sevelamer Carbonate (Renvela) 800 Mg Tablet 800 MG PO TIDWM Ticagrelor (Brilinta) 90 Mg Tablet 90 MG PO BID Scheduled PRN Hydrocodone-Acetaminophen 5-325 mg (Hydrocodone-Acetaminophen 5-325 mg) 1 Each Tablet 1 EACH PO Q4H PRN PRN For Pain Nitroglycerin SL (Nitrostat) 0.4 Mg Tab.subl 0.4 MG SL Q5MIN PRN PRN For Pain Ondansetron (Ondansetron) 4 Mg Tablet 4 MG PO QID PRN PRN For Nausea Zolpidem (Zolpidem) 5 Mg Tablet 5 MG PO HS PRN PRN Insomnia diphenhydrAMINE HCl (Benadryl) 25 Mg Capsule 25 MG PO Q4 PRN PRN For Itching General Time Seen by MD: 04:08 Chief Complaint Chest pain Hx Obtained From: Patient Arrived By: Ambulance Sudden in Onset?: Yes Onset Occurred: 5 - 8 hours ago Symptom Duration: Since onset Location: : Chest left Quality: Painful Severity: Current: No pain currently Severity: Maximum: Moderate Associated with: Denies: Diaphoresis, Fever, Nausea, Shortness of Breath Relieved by: Nitroglycerin at home > 3 Context Related History: Reports: Acute coronary syndrome, Arrhythmia, Diabetes mellitus, Hypertension, Myocardial infarction Recent Healthcare: No recent doctor visit Similar Sx Previous: Yes Past Medical History Past Medical History Subarachnoid and subdural hematoma, hospitalized at [facility] in [place]. Hypertension Recent transcatheter aortic valve replacement Diabetes mellitus End-stage renal disease, on hemodialysis History of heart block, s/p pacemaker placement Paroxysmal atrial fibrillation Ischemic cardiomyopathy Hx aortic stenosis s/p aortic valve replacement Coronary artery disease Chronic gout Non-STEMI Peripheral arterial disease Past Surgical History Aortic valve replacement Cardiac stenting Pacemaker placement Family History Noncontributory Smoking History Never Smoker Social History Lives in [place] Alcohol Use: Denies alcohol use Drug Use: Denies drug use Other Social History: Good social support, Lives alone Ambulatory Status Independent Review of Systems Constitutional: Denies: Fever Respiratory: Denies: Non-productive cough, Shortness of breath Cardiovascular: Reports: Chest pain GI: Denies: Hematochezia, Melena, Nausea, Vomiting Skin: Denies Diaphoresis Complete sys rev & neg: except as marked. Physical Exam Physical Exam Notes: Initial Vital Signs Vital Signs (First) Date Time Temp Pulse Resp B/P Pulse Ox O2 Delivery O2 Flow Rate FiO2 10/20/16 04:01 36.6 76 19 128/56 100 Nasal Cannula 2 Initial VS: Reviewed Head / Eyes: Atraumatic, Normocephalic ENT: Conjunctiva normal, No scleral icterus Skin: Warm, Dry, No cyanosis Neurologic: Alert, Oriented, Nonfocal Psychiatric: Mood/affect normal, Behavior normal, Normal thought content General/Constitutional: Awake, Alert, No acute distress Appearance / Presentation: Positive: Pale Respiratory / Chest: Breath sounds NL, Breath sounds = bilat, No respiratory distress Cardiovascular: Heart rate NL, Regular rhythm, Heart sounds NL Mild bilateral lower extremity edema Abdomen: Soft, Non-tender Neck: Supple, Full range of motion, No JVD Interpretation & Diagnostics Lab Results Interpretation Result Diagram: 10/20/16 0425 10/20/16 0425 Test 10/20/16 04:25 10/20/16 04:30 White Blood Count 9.0th/mm3 (3.8-10.1) Red Blood Count 2.81mil/mm3 (4.40-5.80) Hemoglobin 9.5g/dL (13.8-17.2) Hematocrit 28.0% (41.0-50.0) Mean Corpuscular Volume 99.6fL (81-100) Mean Corpuscular Hemoglobin 33.8pg (27.0-35.0) Mean Corpuscular Hemoglobin Concent 33.9% (32.0-37.0) Red Cell Distribution Width 12.4% (12.3-15.4) Platelet Count 136bil/L (150-400) Neutrophils (%) (Auto) 64.6% (40-74) Lymphocytes (%) (Auto) 21.5% (14-46) Monocytes (%) (Auto) 9.9% (4-12) Eosinophils (%) (Auto) 3.1% (0-5) Basophils (%) (Auto) 0.7% (0-3) Sodium Level 141mEq/L (134-144) Potassium Level 4.8mEq/L (3.5-5.2) Chloride Level 98mEq/L (97-108) Carbon Dioxide Level 23mmol/L (18-29) Blood Urea Nitrogen 62mg/dL (8-27) Creatinine 6.25mg/dL (0.76-1.27) Estimat Glomerular Filtration Rate 9mL/min (>59) Glucose Level 97mg/dL (60-99) Calcium Level 9.8mg/dL (8.5-10.1) Magnesium Level 2.2mg/dL (1.6-2.6) Total Bilirubin 0.5mg/dL (0.0-1.2) Aspartate Amino Transf (AST/SGOT) 19U/L (0-50) Alanine Aminotransferase (ALT/SGPT) 20U/L (0-44) Alkaline Phosphatase 122U/L (25-160) Troponin T 0.250ug/L (0.0-0.011) Total Protein 6.1g/dL (6.4-8.4) Albumin 3.9g/dL (3.4-5.0) Hold [place] Top Tube Received (Received) ECG Interpretation ECG Interpretation: Paced rhythm Otherwise normal Time: 04:00 Interpreted by: ED physician X-Ray Chest Interpretation Chest Xray Interpretation: Pacemaker present Otherwise normal View: Portable, 1 view Interpretation / Wet Read by: Wet read ED physician Re-Eval/Medical Decision Med Decision/Clinical Course 75-year-old known coronary disease presents with first onset of chest pain after stent procedure two months ago. This is each time been relieved by nitroglycerin, but it occurs at rest. End stage renal disease with last dialysis Friday. No evidence of CHF presently. Begun with heparin. Aspirin en route here. Elevated troponin is trending but seems likely to have had a non-STEMI Source of Hx: Old records Time of Eval: 05:30 Patient Status: Condition improved Re-Evaluation/Progress Note: Discussed with patient x-ray and lab results, diagnosis, and plan for admit. Patient agrees with plan for care and all questions were addressed. Consultation : Referral / Consult Name: Dayanara Guillen DO Consulted With: Hospitalist Call Returned at: 17:43 Heel Coverer: Agrees with eval, Agrees with plan, Accepts admit Counseled Regarding: Diagnosis, Lab results, Need for admission Discharge & Departure Shift Change Sign-Out Response to Therapy: Improved Primary Impression: Unstable angina Additional Impressions: ESRD (end stage renal disease) on dialysis Non-STEMI (non-ST elevated myocardial infarction) Disposition: ADMITTED TO HOSPITAL Discharge Condition All VS Reviewed: Yes Condition: Improved Referrals: Hema Phillips MD (PCP) Gabriele Attestation Portions of this note were transcribed by Shikha Durán. I, Dr. Chappell, personally performed the history, physical exam, and medical decision-making; I reviewed and confirmed the accuracy of the information in the transcribed note. Signed by: Gabriele Macias, 10/20/2016, 07:05 copies to: Hema Phillips MD, Christopher W MD Oct 20, 2016 04:09 SHIKHA UDRÁN Oct 20, 2016 04:16
[2016-10-20] MEDS ORDERED: Nitroglycerin 2% 1 Gm Ointment TOPICAL SCH (04:25)
[2016-10-20] MEDS ORDERED: Heparin 1,000 Units/mL 10 mL DVT/PE Bolus Inj IVPUSH ONE (04:25)
[2016-10-20] MEDS ORDERED: Heparin 5,000 Unit/mL Inj ONE (04:35)
[2016-10-20 04:38] LABS: BASOPHILS % (AUTO) 0.7 % (0-3); EOSINOPHILS % (AUTO) 3.1 % (0-5); MONOCYTES % (AUTO) 9.9 % (4-12); Mean Corpuscular Hemoglobin 33.8 pg (27.0-35.0); Mean Corpuscular Volume 99.6 fL (81-100); NEUTROPHILS % (AUTO) 64.6 % (40-74); Platelet Count 136 bil/L (150-400)
[2016-10-20 05:15] LABS: Magnesium 2.2 mg/dL (1.6-2.6)
[2016-10-20 05:27] LABS: TROPONIN T 0.25 ug/L (0.0-0.011)
[2016-10-20] MEDS ORDERED: Heparin 25K Unit/500mL 0.45 NS 25,000 UNIT in IV Premix 1 EACH IV ONE ×2 (05:55→06:00)
[2016-10-20] MEDS ORDERED: Ondansetron 2 mg/mL 2 mL Inj IVPUSH PRN ×2 (06:00→08:50)
[2016-10-20] MEDS ORDERED: Senna-Docusate 8.6-50 mg Tablet PO PRN (08:50)
[2016-10-20] MEDS ORDERED: Alum-Mag Hydrox-Simeth 30 mL Suspension PO PRN (08:50)
[2016-10-20] MEDS ORDERED: Polyethylene Glycol (PEG) 17 Gm Powder PO PRN (08:50)
[2016-10-20] MEDS ORDERED: Atropine 1 mg/10 mL (Code) Syringe IVPUSH PRN (08:50)
--- NOTE | 2016-10-20 08:57 | PCM.HPMED ---
Subjective Date of Service Oct 20, 2016 Primary Provider: Admitting Physician: Dayanara Guillen DO Primary Care Physician: Hema Phillips MD Attending Physician: Dayanara Guillen DO Admit Status: From the Emergency Department, Full Admit, Admit to [facility] Team, [facility] Telemetry Chief Complaint: Chest pain History of Present Illness: This is a 75-year-old gentleman with a history of CAD with 3 stent procedures in the last 2 years, 2 MIs, and TAVr procedure. All of this is happening in [place], his plater barrel is Dr. Albrecht. He has end-stage renal disease and dialyzes Friday and Friday. He has done well since his last stenting procedure which I believe was about 6 months ago. Last evening at rest developed substernal chest pain. This is been stuttering. This was alleviated with nitroglycerin which she take 4 doses of over approximately 8 hours. Ultimately because of persistence and recurrence of pain he called 911 and was taken to the ER. He had taken nitroglycerin just prior to being picked up by medics and had some recurrence of pain upon arrival to the ER. He was given another nitroglycerin and placed on paste as well as a heparin drip. He cannot say where his stents were placed. He denies recent cough, pleuritic pain, associated nausea vomiting diaphoresis or dyspnea. No recent exertional dyspnea or chest pain. He recently had a leg angiogram for his nonhealing right foot fifth toe. This is been an issue for about 7 months. He is found to have severe disease below the knee that was not amenable to PCI. The patient is on Plavix for this. Review of Systems: No headache, difficulty hearing and visual changes rhinorrhea cough or sore throat. No fevers or chills. No difficulty with diarrhea constipation or abdominal pain. No chest pain currently. Also reviewed and otherwise negative except as noted in history of present illness. Allergies Coded Allergies: clopidogrel (Verified Allergy, Intermediate, per patient broke out in a rash, 10/20/16) per med.records from [facility] Medications Allopurinol (Allopurinol) 100 Mg Tablet 100 MG PO DAILY Aspirin (Aspirin) 81 Mg Tablet 81 MG PO DAILY Atorvastatin Calcium (Atorvastatin Calcium) 40 Mg Tablet 40 MG PO DAILY Cholecalciferol (Vitamin D3) (Vitamin D) 1,000 Unit Capsule 1,000 UNIT PO DAILY Insulin Glargine (Lantus U100 Solostar Insulin Pen) 100 Unit/1 Ml Insuln.pen 40 UNITS SUBQ HS Metoprolol Succinate ER (Metoprolol Succinate ER) 50 Mg Tab.er.24h 75 MG PO BID Niacin ER (Niacin ER) 500 Mg Tablet 500 MG PO DAILY Sevelamer Carbonate (Renvela) 800 Mg Tablet 800 MG PO TIDWM Ticagrelor (Brilinta) 90 Mg Tablet 90 MG PO BID Scheduled PRN Hydrocodone-Acetaminophen 5-325 mg (Hydrocodone-Acetaminophen 5-325 mg) 1 Each Tablet 1 EACH PO Q4H PRN PRN For Pain Nitroglycerin SL (Nitrostat) 0.4 Mg Tab.subl 0.4 MG SL Q5MIN PRN PRN For Pain Ondansetron (Ondansetron) 4 Mg Tablet 4 MG PO QID PRN PRN For Nausea Zolpidem (Zolpidem) 5 Mg Tablet 5 MG PO HS PRN PRN Insomnia diphenhydrAMINE HCl (Benadryl) 25 Mg Capsule 25 MG PO Q4 PRN PRN For Itching PMH 1. CAD with a history of multivessel disease and 3 stents in the last 2 years. 2. Aortic stenosis, status post Repair per his report 3. DM 2, insulin-dependent 4. Hypertension, essential. 5. Peripheral arterial disease. 6. Nonhealing gangrenous right foot fifth toe 7. Hyperlipidemia Surgical History TAVR Family History His mother has diabetes Social History Occupation: retired Hx Alcohol Use: No Hx Substance Use: No Hx Tobacco Use: No Smoking Status: Never Smoker Living Arrangement: Alone Exam Vital Signs Vital Sign - Last Date Time Temp Pulse Resp B/P Pulse Ox O2 Delivery O2 Flow Rate FiO2 10/20/16 08:15 36.4 69 20 122/61 100 Room Air 10/20/16 04:01 2 Exam Alert oriented 3, no distress. Fluent speech. Normal scalp. Normal external nose and ears Anicteric sclera, symmetric pupils Oropharynx unremarkable normal mucosa, no true Neck is supple, normal thyroid, no adenopathy. Lungs are clear with normal effort. Heart is regular without murmur gallop or rub. Abdomen is soft nontender nondistended no organomegaly Extremities are free of edema with nonpalpable pulses. Patient does have reasonable Refill. He has a gangrenous right foot great toe. Skin is free of rash or lesions otherwise. Joints are not swollen or deformed. Muscle strength. Cranial nerves are intact. Lab and Diagnostics Result Diagram: 10/20/1642410/20/16424 Assessment & Plan 1. Unstable angina. POA. The plan is to continue beta-blockade will increase metoprolol from 50-75 twice a day, continue dual antiplatelet agents and heparinize. Will discuss with cardiology. Patient's EMR states allergic to Plavix however he is telling me today that he is taking this now actively for his PAD. 2. Known multivessel CAD, POA. Plan is as above 3. Aortic stenosis, history of T aVR. POA. 4. DM 2, insulin-dependent. POA. The plan is to continue Lantus with traction on nutritional lispro. 5. Hypertension. POA. Plan is to continue current antihypertensive therapy but will increase metoprolol and add lisinopril. 6. End-stage renal disease, POA. The patient is not due for dialysis until Friday. This patient is full resuscitation His assessment length stays over 2 nights. Pain Evaluation: Adequate Pain Control Resuscitation Status: CPR: Attempt Resuscitation Time spent 40 min Cirilo Perdomo MD Oct 20, 2016 08:57
[2016-10-20] MEDS ORDERED: Glucose 40% Oral Gel 15 Gm Tube PO PRN (09:00)
[2016-10-20] MEDS: Insulin LISPRO 300 Unit/3 mL Inj SUBQ SCH ×4 (09:15→21:18)
--- NOTE | 2016-10-20 09:15 | DRSVH ---
PROCEDURE: X-RAY CHEST ONE VIEW, PORTABLE ([id number]) INDICATIONS: Chest pain. TECHNIQUE: One view of the chest was acquired. COMPARISON: [facility], [place], XR CHEST 1VW (PORTABLE), 08/23/2016, 2:08. FINDINGS: Surgical changes and devices: There is a cardiac pacer in expected position. A stent or valve prosthe ses is noted in heart. Lungs and pleura: No pleural effusions or pneumothorax. Lungs are clear. Mediastinum: Mediastinal contours appear normal. Heart size is normal. Bones and chest wall: No suspicious bony lesions. Overlying soft tissues appear unremarkable. IMPRESSION: No acute cardiopulmonary disease. Dictated by: Gwendolyn Alexandre M.D. on 10/20/2016 at 9:12 Approved by: Gwendolyn Alexandre M.D. on 10/20/2016 at 9:13
[2016-10-20] MEDS: MeTOProlol XL 25 mg ER24 Tablet PO SCH ×2 (09:54→21:17)
[2016-10-20] MEDS: 0.9% Sodium Chloride 1,000 ML IV SCH ×2 (09:55→23:05)
[2016-10-20 11:27] LABS: Creatine Kinase 49 U/L (21-232); Magnesium 2.3 mg/dL (1.6-2.6)
--- NOTE | 2016-10-20 11:40 | NUR ---
Social Work: Initial Assessment: Data & Assessment: EMR Reviewed. See Initial Assessment. Patient is a 75 y/o male that admitted on 10/20/16 for Unstable Agina CRF/ ESRD. Patient confirmed that his PCP is Dr. Hema Phillips.Childcare Worker met with patient at bedside to complete initial assessment, discuss discharge planning and SW role reviewed. Patient is alert and oriented x 3. Patient also confirmed that Medicare is his primary insurance and [employer] is his secondary. Patient does not have VA benefits or LTC benifits. Prior to admission patient lived home alone in a mobile home with 5 steps to enter. Patient is independent with ADLs. Patient has a walker but reported that he only uses it outside of the house. Patient does not have any HH or SNF history. Patient will likely discharge home no needs. Patient states that he has a caregiver and she will pick him up when discharged. SW wrote contact information on the white board in the patient's room. SW will continue to follow. Plan: Patient will likely discharge home no needs via POV. SW will continue to follow. Gayla Purcell LMSW, TYLER Addendum: 10/20/16 at 1147 by GAYLA PURCELL SS Amended: Links added. Addendum: 10/20/16 at 1150 by GAYLA PURCELL SS Patient states that he goes to [facility] for Dialysis on MWF. Patient thinks he may have a DPOA, but not sure. Patient declined Advance Directive/DPOA paperwork.
[2016-10-20] MEDS ORDERED: HYDROcodone-APAP 5-325 mg Tablet PO PRN (14:05)
--- NOTE | 2016-10-20 15:25 | CONS ---
[address] [address] CONSULTATION REPORT PATIENT: ALLY HIRSCH : 1940 MR#: [id number] ADMIT: 10/20/2016 JOB ID: [id number] DATE OF SERVICE: 10/20/2016 REASON FOR DUCT MAKER CONSULT: Further evaluation of chest pain and abnormal troponin. CHIEF COMPLAINT: Chest pain. PRESENT HISTORY: This is a 75-year-old, pleasant male who has a history of complex cardiovascular disease, status post transcutaneous aortic valve replacement in April 2016, at [place]. Prior to that, had drug coated stent placement to the mid LAD and mid right coronary artery in March 2016, high-degree AV block during TAVR, status post Bi-V pacemaker, end-stage renal disease on hemodialysis, recent non ST-T CA in August 2016. At that time, he had another stent at [place] by Dr. Albrecht, details not available at present, LV ejection fraction about 40% with ischemic cardiomyopathy, peak aortic valve velocity about 2.34 m/sec without any paravalvular aortic regurgitation based on echocardiogram in June 2016, peripheral vascular disease, nonhealing ulcer involving right foot, status post recent right lower extremity angiogram by Dr. Albrecht on October 18, 2016, which was unsuccessful. As per the patient, got admitted because of above-mentioned chief complaint. According to the patient, since his last PCI in August 2016, he did not have any chest pain up until yesterday evening, when he started having retrosternal chest pain. It was pressure type. No radiation. He did not have any nausea, vomiting, sweating. He took total of four nitroglycerin over a couple of hours as his chest pain was waxing and waning. When he got recurrence of chest pain and nitroglycerin was not helping, he decided to come to the hospital. In the hospital, he was given nitroglycerin as well. At present, he is lying on bed. He is chest pain free. He had serial troponin which was abnormal. Hence, Cardiology consult was sought. The patient denies any fever, cough, expectoration, or active bleeding or stroke-like symptoms. No PND, orthopnea-like symptoms. His chest pain lasted couple of hours altogether. He has right groin ecchymosis after his right lower extremity angiogram which was done this past Friday on October 18, 2016. Denies any active pain in the groin. PAST MEDICAL HISTORY: History of drug-coated stent placement to the mid LAD and mid right coronary artery in March [address] Albrecht, history of transcutaneous aortic valve replacement for severe aortic stenosis in April 2016 at [place], Bi-V pacemaker, ischemic cardiomyopathy with LV ejection fraction about 40%, recent stent placement in August 2016, details not available, history of subdural hematoma in June 2016 after fall for which antiplatelet treatments were put on hold for two weeks, managed conservatively, now on Brilinta as well as aspirin, history of rash with Plavix, end-stage renal disease on hemodialysis Friday, Friday, and Friday, insulin dependent diabetes mellitus, history of paroxysmal AFib, and other problems as stated above. PAST SURGICAL HISTORY: As stated above. ALLERGIES: The patient is allergic to PLAVIX. MEDICATION AT HOME: 1. Aspirin 81 mg daily. 2. Ticagrelor 90 mg b.i.d. 3. Carbonate 800 mg t.i.d. 4. Niacin ER 500 mg daily. 5. Metoprolol succinate 50 mg tablet, 75 mg b.i.d. 6. Insulin. 7. Atorvastatin 40 mg daily. 8. Aspirin 81 mg daily. 9. Allopurinol 100 mg daily. 10. Vitamin D3. SOCIAL HISTORY: Denies any current tobacco abuse. FAMILY HISTORY: Mother has diabetes. REVIEW OF SYSTEMS: Ten-point review of systems was obtained and negative except as stated above. PHYSICAL EXAMINATION: At present, patient lying on bed. He is not having any active chest pain. Blood pressure 122/54, heart rate 67, respiratory rate 18, oxygen saturation in room air 100% and no significant jaundice. Neck: No apparent JVP. I do not appreciate any obvious carotid bruit. Chest: No obvious crepitation or rhonchi. CVS: S1, S2 appears normal. No S3, no S4. Very soft ejection systolic murmur at the base. Abdomen: No obvious pulsatile mass felt. Right groin examination revealed diffuse ecchymosis without any pulsatile mass or bruit. The patient has dressing at the base of right 5th toe. There is redness at the distal aspects of all the toes. Distal pulses are feeble. PULVERIZER: Alert, oriented to time, place, and person. Able to move all the four extremities. 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 LABORATORIES: WBC 9.0, hemoglobin 9.5 on August 31, 2016, hemoglobin was 9.2, platelets 136. On August 23, 2016, it was 125. PTT 49.6. Patient is on heparin. Sodium 141, potassium 4.8, BUN 62, creatinine 6.25. Calcium 9.8, magnesium 2.2. Bilirubin 0.5. Normal AST, ALT. His troponin T were 0.25 and 0.289. On August 23, 2016, it was 3.34. Patient has chronically elevated troponin T. His CPK 49, MB 4.7. TSH 3.9. EKG: He has a paced rhythm. X-ray chest revealed no acute cardiopulmonary disease. Lungs clear. Heart size normal. ASSESSMENT AND PLAN: Recurrent chest pain consistent with unstable angina. The patient has paced rhythm on EKG. He has abnormal troponin. He has end-stage renal disease, with abnormal troponin for long time. On August 23, 2016, when he had a non ST-T CA, at that time, troponin T was 3.34. This time maximum troponin T is 0.289. CPK MB within normal limits. Patient has complex cardiovascular disease. He has drug-coated stent placement to the mid LAD and RCA in March 2016 and recent PCI in August 2016 at [place]. The detail is not available. On top of that, he has peripheral vascular disease involving right lower extremity and underwent procedure day before yesterday, and according to the patient, they could not fix it because of the nature of his lower extremity disease. The patient also has history of transcutaneous aortic valve replacement in April 2016, and Bi-V pacemaker. His ejection fraction was about 40% in August 2015. Clinically, he is not in heart failure. He is getting dialysis three times a week. Discussed with the patient further cardiac workup. According to the patient, he would like to have all the cardiac workup at [facility]. If he has to have a left heart catheterization, he would like to have it over there as he had all his cardiac workup and procedures over there. At this point of time, he will prefer to be treated medically. According to the patient, he is taking Brilinta. Hence, I will recommend putting him on Brilinta as per his home doses with aspirin 81 mg and continue heparin for 48 hours. His beta ivan is already increased by Dr. Perdomo. Continue high intensity statin, as well as VIJAYA inhibitor. Will recommend atorvastatin 80 mg. At present, he is not having any more chest pain. We will follow his echocardiogram as well. Will recommend giving her a call to Dr. Albrecht, who is his surgical assistant certified in [place] for further plan and evaluation. Thanks for the Cardiology consult. Total time spent today reviewing his old records, about 70 minutes.
[2016-10-20] MEDS: Niacin SR 500 mg ER12 Tablet PO SCH (15:26)
--- NOTE | 2016-10-20 15:46 | DRSVH ---
Study location field not populated with appropriate location Echocardiogram Report Name: ALLY HIRSCH WStudy Date: 10/20/2016 Height: 69 in Hospital Weight: 171 lb Gender: Male BSA: 1.9 m2 : 1940 Age: 75 yrs BP: 122/61 mmHg Reason For Study: Chest pain Ordering Physician: HOSPITALIST SVHPerformed By: Agus Shanks Referring Physician: ISAIAH NAVAS Interpretation Summary The left ventricle is mildly dilated. The ejection fraction is estimated to be 35-40%. Compared to the prior exam, left ventricular function is slightly decreased. The right ventricle is normal size. The right ventricular systolic function is normal. There is a pacemaker lead in the right ventricle. There is mild to moderate mitral regurgitation. Compared to the prior echo study, there has been an increase in the severity of mitral regurgitation. There is a bioprosthetic aortic valve. The peak aortic velocity is 2.08 m/sec. The aortic valve mean gradient is 8.3 mmHg. The peak aortic velocity on the previous exam was 2.3 m/sec. There is trace tricuspid regurgitation. Compared to the prior echo exam, there has been no change in TR severity. The right ventricular systolic pressure is estimated at 37 mmHg assuming a right atrial pressure of 3 mm Hg. Compared to the prior echo exam, there has been an increase in the severity of pulmonary hypertension. Mild atherosclerotic plaque(s) in the aortic arch. Procedure: A two-dimensional transthoracic echocardiogram with color flow and Doppler was performed. The study quality was technically good. Comparison is made with the echocardiogram of 08/18/16. The patient was in normal sinus rhythm during the exam. Left Ventricle: The left ventricle is mildly dilated. There is mild asymmetric left ventricular hypertrophy. There is no echo evidence for significant left ventricular outflow tract obstruction. There is no thrombus. The ejection fraction is estimated to be 35-40%. Compared to the prior exam, left ventricular function is slightly decreased. There is posterolateral wall severe hypokinesis. There is basal inferior wall akinesis. There is apical inferior wall akinesis. There is apical akinesis. There is mid anterolateral wall severe hypokinesis. There is apical lateral wall severe hypokinesis. There is apical septal wall akinesis. There is apical anterior wall akinesis. Compared to the prior exam, the left ventricular wall motion has not changed. The E/E' ratio is abnormal. Right Ventricle: The right ventricle is normal size. There is a pacemaker lead in the right ventricle. The right ventricular systolic function is normal. Atria: The left atrium is mildly dilated. Right atrial size is normal. The interatrial septum is intact with no evidence for an atrial septal defect. Mitral Valve: The mitral valve leaflets appear borderline thickened, but open well. There is mild to moderate mitral annular calcification. The mitral valve chordae are thickened and/or calcified. There is mild to moderate mitral regurgitation. Compared to the prior echo study, there has been an increase in the severity of mitral regurgitation. Aortic Valve: There is a bioprosthetic aortic valve. The gradients through the prosthetic aortic valve are within the normal range for this type of valve. The prosthetic aortic valve is well-seated. The peak aortic velocity is 2.08 m/sec. The aortic valve mean gradient is 8.3 mmHg. The peak aortic velocity on the previous exam was 2.3 m/sec. No aortic regurgitation is present. Tricuspid Valve: The tricuspid valve is normal. There is trace tricuspid regurgitation. The right ventricular systolic pressure is estimated at 37 mmHg assuming a right atrial pressure of 3 mm Hg. Compared to the prior echo exam, there has been no change in TR severity. Compared to the prior echo exam, there has been an increase in the severity of pulmonary hypertension. Pulmonic Valve: The pulmonic valve is not well visualized. There is mild pulmonic regurgitation. Great Vessels: The aortic root is normal size. The ascending aorta is mildly enlarged. Mild atherosclerotic plaque(s) in the aortic arch. The pulmonary artery is normal size. The IVC is of normal diameter and collapses greater than 50% with a sniff. This suggests a low right atrial pressure of 3 mm Hg. Pericardium/ Pleura There is no pericardial effusion. There is no pleural effusion. MMode/2D Measurements & Calculations LVIDd: 5.9 cm RA long axis LVOT diam: 2.1 cm LVIDs: 4.7 cm LA A2 area: 22.2 cm Ao root diam FS: 19.5 % LA A4 area: 18.0 cm RA area EPSS: 1.0 cm LA length (vol) asc Aorta Diam IVSd: 1.4 cm : 16.6 cm LVPWd: 0.99 cm LA vol: 69.2 ml RA vol Ao Arch Diam (Prox LA vol index : 46.8 ml Trans): 3.0 cm : 35.8 ml/m2 RA : 24.2 mm2 LV kent. diameter/BSA LV sys. diameter/BSA RVD1 (basal) (cm/m^2): 3.0 (cm/m^2): 2.4 Doppler Measurements & Calculations Ao V2 max: 208.6 cm/secMV E max devon MV E/A: 1.1 TR max devon Ao max P.4 mmHg : 118.3 cm/sec Med Peak E' Devon : 290.8 cm/sec Ao mean P.3 mmHg MV A max devon TR max PG LVOT Max Devon : 109.0 cm/sec E/E' med: 35.1 : 33.8 mmHg : 92.5 cm/sec Lat Peak E' Devon PA V2 max SVETLANA(I,D): 1.7 cm : 84.7 cm/sec sev ratio: 0.48 E/E' lat: 37.4 PA mean PG E/e' average : 1.4 mmHg MV A dur : 0.14 sec MV dec time: 0.21 sec Ao V2 mean LV V1 max PG PA V2 mean : 134.8 cm/sec : 56.2 cm/sec Ao V2 VTI: 44.8 cmLV V1 VTI PA pr(Accel) SVETLANA(V,D): 1.5 cm2 : 21.5 cm : 27.6 mmHg SVETLANA indexed to BSA (cm^2/m^2): 0.87 Reading Physician:JATINDER
[2016-10-20] MEDS ORDERED: Nitroglycerin 2% 1 Gm Ointment TOPICAL ONE (16:30)
[2016-10-20] MEDS: Sodium Chloride LOK Flush 10 mL Syringe IVFLUSH SCH (16:30)
--- NOTE | 2016-10-20 18:42 | NUR ---
Chest Pain Patient complained of chest pain 02/10 at 1619. Stat EKG ordered and gave total of 2 nitro sublingual after EKG was done. notified and ordered nitro paste 1 inch stat. Pain subsided to 0/10. Addendum: 10/20/16 at 1846 by DANO SNOW RN At 1800 patient complained of chest pain again at 5/10. At 1808 gave patient 1 nitro sublingual and at 181 gave 2nd nitro sublingual. Pain subsided to 0/10.
[2016-10-20] MEDS: Insulin GLARgine 100 Unit/mL Syringe SUBQ SCH (21:00)
[2016-10-21] VITALS (9 sets, daily range): BP systolic 95–120; BP diastolic 53–76; PULSE 77–95; RESP 16–20; O2SAT 90–98
[2016-10-21] MEDS: Sodium Chloride LOK Flush 10 mL Syringe IVFLUSH SCH ×3 (00:11→16:30)
[2016-10-21 07:11] LABS: BASOPHILS % (AUTO) 0.6 % (0-3); EOSINOPHILS % (AUTO) 2.6 % (0-5); MONOCYTES % (AUTO) 5.7 % (4-12); Mean Corpuscular Hemoglobin 33.7 pg (27.0-35.0); NEUTROPHILS % (AUTO) 71.3 % (40-74); Platelet Count 143 bil/L (150-400)
--- NOTE | 2016-10-21 07:43 | NUR ---
Chest Pain Pt c/o chest pain 5 times throughout the evening shift and had 2 STAT EKGs and was given Nitro SL x3 PRN for these chest pain episodes. Pt's pain would dissipate to 0/10 - 2/10 pain and the pt would not require the morphine that is in the EMAR for chest pain not relieved by nitro. Pt said that he would have these episodes exactly 1 hour and 15 minutes apart from each other. After 5th episode of chest pain and Nitro SL x3 pt was given an Ambien and 2 [place]. The pt received [place] for right foot 5th toe pain 8/10 r/t the pt's wound on this toe that he had [employer]ACH[employer]. Pt also c/o extreme gas pain and passing more gas than usual. Pt was left to try and sleep and the pt did not use call light during this time and did not c/o any further pain. It has now been 6 hours since the last chest pain episode.
[2016-10-21] MEDS: Insulin LISPRO 300 Unit/3 mL Inj SUBQ SCH ×4 (08:00→20:47)
[2016-10-21 08:13] LABS: TROPONIN T 0.366 ug/L (0.0-0.011)
--- NOTE | 2016-10-21 08:43 | NUR ---
0830 Renvela Per pharmacy, will not have more Renvela until approx [phone] today when next shipment comes in, unable to administer 0830 dose due to medication being unavailable. Patient aware but displeased.
[2016-10-21] MEDS: 0.9% Sodium Chloride 1,000 ML IV SCH ×2 (09:46→22:16)
[2016-10-21] MEDS: Niacin SR 500 mg ER12 Tablet PO SCH (10:05)
[2016-10-21] MEDS: MeTOProlol XL 25 mg ER24 Tablet PO SCH ×2 (10:06→20:39)
[2016-10-21] MEDS: Nitroglycerin 2% 1 Gm Ointment TOPICAL SCH ×2 (10:09→20:45)
--- NOTE | 2016-10-21 10:42 | PROG NOTE ---
[address] [address] PROGRESS NOTE PATIENT: ALLY HIRSCH : 1940 MR#: [id number] ADMIT: 10/20/2016 JOB ID: [id number] DATE: 10/21/2016 SUBJECTIVE: The patient, in the morning when I examined him, was sitting on his bed and having breakfast. Denies any active chest pain or worsening shortness of breath, PND, orthopnea, but had prolonged chest pain in the middle of the night and required multiple nitroglycerin. No fever, cough, expectoration. Denies any new right groin bleed. No stroke-like symptoms. OBJECTIVE: Blood pressure 102/58, heart rate 78, respiratory rate 16. Oxygen saturation on room air 94%. Clinically, no apparent JVD. Chest: Decreased air entry at the bases. CVS: No S3, no S4. Very soft ejection systolic murmur at the base. Abdomen: No obvious pulsatile mass felt. Right groin examination revealed diffuse ecchymosis without any pulsatile mass or bruit. He has a dressing at the base of the right 5th toe. PAYROLL BENEFITS ADMINISTRATOR: Alert, oriented to time, place, and person. Vascular: Has fistula in the right upper extremity. Telemetry: He has predominantly ventricular paced rhythm. Intermittent atrial paced rhythm. LABORATORIES: WBC 12.4, hemoglobin 9.6, platelets 143. Sodium 144, potassium 5.0, BUN 81, creatinine 8.08. This supervisor vacuum metalizing, his troponin-T was 0.366. Yesterday, 0.246. On admission, it was 0.250. On August 23, 2016, it was 3.34. He had an echocardiogram yesterday which revealed LV ejection fraction 35-40%. Previously, it was about 40%. Right ventricular function normal, mild to moderate mitral regurgitation, normal functioning transcutaneous aortic valve replacement which is bioprosthetic. Peak aortic valve velocity 2.08 m/sec and mean gradient about 8.3 mmHg. Previously, it was 2.3 m/sec. Trivial tricuspid regurgitation. Pulmonary artery systolic pressure about 37 mmHg. The patient has multiple wall motion abnormalities, which was not significantly changed from the previous one. ASSESSMENT AND PLAN: Recurrent chest pain consistent with anginal pain, with incrementally increasing troponin suggestive of acute coronary syndrome, with known history of multiple percutaneous coronary intervention (PCI) in the past and non-ST-T myocardial infarction. He had a drug-coated stent placement to the mid left anterior descending and occluded right coronary artery in March 2016, history of transcutaneous aortic valve replacement (TAVR) and Bi-V pacemaker in April 2016, history of non-ST-T myocardial infarction in August 2016, with further intervention by Dr. Albrecht at [facility], details not available, known history of ischemic cardiomyopathy with left ventricular ejection fraction 40%, peripheral vascular disease, nonhealing ulcer involving the right foot, recent right lower extremity angiogram and failed PCI as per the patient, end-stage renal disease, on hemodialysis, and multiple other medical problems as stated above. Discussed with the patient further cardiac workup including need for left heart catheterization to assess his [place] arteries and especially to rule out coronary stent thrombosis. The patient has all his interventions at [facility]. He would like to go over there. He is a very complex patient. He will need CT surgery backup. We do not have CT surgery backup in our hospital. I called [facility], and discussed with Dr. Buchanan, who is covering Dr. Albrecht. Dr. Buchanan accepted the patient. I spoke to the nursing blooming mill supervisor as well as with the patient and briefed them about my conversation with Dr. Buchanan. The patient will be transferred to Dr. Buchanan for left heart catheterization in anticipation of revascularization. Meanwhile, will continue dual antiplatelet therapy with Brilinta, aspirin, and continue heparin. He is already on high intensity statin as well as tolerable dose of beta ivan and VIJAYA inhibitor. Will put him on nitroglycerin paste as well. The patient agreed and concurred. I also discussed the case with our hospitalist, Dr. Perdomo. TOTAL TIME SPENT: Today, including having discussion with Dr. Buchanan and other physicians, as well as patient, about 60 minutes.
[2016-10-21] MEDS ORDERED: Heparin 25K Unit/500mL 0.45 NS 25,000 UNIT in IV Premix 1 EACH IV SCH (11:20)
[2016-10-21] MEDS ORDERED: Heparin Protocol Boluses IVPUSH PRN (11:20)
[2016-10-21] MEDS ORDERED: cefTRIAXone Inj 1,000 MG in Dextrose 5% Minibag Plus 50 ML IV SCH (14:10)
--- NOTE | 2016-10-21 14:55 | PCM.PNMED ---
Subjective Date of Service Oct 21, 2016 Subjective Patient is having intermittent chest pain overnight requiring multiple doses of sublingual nitroglycerin. This morning he feels better. No associated nausea vomiting or diaphoresis. No dyspnea. He is due for dialysis today. Cardiology is hoped to send him up to [place] where his primary hotel associate is. After 5 hours of efforts and communication they are unable to take him due to having no capacity. Exam Vital Signs Vital Sign - Last Date Time Temp Pulse Resp B/P Pulse Ox O2 Delivery O2 Flow Rate FiO2 10/21/16 12:20 37.0 83 20 114/61 95 Nasal Cannula 1.50 Intake and Output 10/20/16 10/20/16 10/21/16 Cumulative From/Thru 15:00 23:00 07:00 10/20/16 04:01 - 10/21/16 06:17 Intake Total 1190 ml 2997 ml 4187 ml Output Total 940 ml 0 ml 940 ml Balance 250 ml 2997 ml 3247 ml Intake Oral 1190 ml 300 ml 1490 ml IV Total 2697 ml 2697 ml Output Urine Total 940 ml 0 ml 940 ml # Voids 1 0 1 # Bowel Movements 1 1 2 Exam Alert oriented 3, no distress. Fluent speech Lungs are clear with normal rate and effort. Heart is regular without murmur gallop or rub Abdomen is soft nontender. Extremities are free of edema good pedal pulses. Skin is free of rash or lesions IVs and Medications Medications Reviewed: Medications were reviewed in detail Lab and Diagnostics Result Diagram: 10/21/1655 10/21/16 0655 Assessment & Plan 1. NSTEMI. The patient remains stable but does have evidence of elevated troponins which are slowly rising. He has nonspecific electrocardiogram findings. The patient's been discussed in depth with cardiology. The plan for today will be to continue his heparin drip nitro paste and other cardioprotective medications. His regular hotel associate in [place] is unable to accept him in transfer. He last had a PCI with an LAD stent in mid August of this year. The patient will continue ostial antiplatelet agents and be reviewed by cardiology to decide whether or not he will need an angiogram here. 2. Known multivessel CAD, POA. Plan is as above 3. Aortic stenosis, history of T aVR. POA. 4. DM 2, insulin-dependent. POA. The plan is to continue Lantus with traction on nutritional lispro. This remained stable. 5. Hypertension. POA. Plan is to continue current antihypertensive therapy but will increase metoprolol and add lisinopril. This remained stable. 6. End-stage renal disease, POA. I have discussed his need for dialysis today with nephrology, they will coordinate. 7. One blood culture positive for GNR's. The patient does have a necrotic right fifth toe which is been ongoing and an issue for 7 months. This could be a nidus of infection. We will start ceftriaxone and await further blood cultures. This is probably a good reason daily for percutaneous coronary intervention today until more information is available. This patient is full resuscitation His assessment length stays over 2 nights. Resuscitation Status: CPR: Attempt Resuscitation Time spent 40 minutes Cirilo Perdomo MD Oct 21, 2016 14:55
--- NOTE | 2016-10-21 15:38 | PROG NOTE ---
[address] [address] PROGRESS NOTE PATIENT: ALLY HIRSCH : 1940 MR#: [id number] ADMIT: 10/20/2016 JOB ID: [id number] DATE: 10/21/2016 As I mentioned in my earlier note that I spoke to Dr. Buchanan at [facility] who has accepted the patient to be transferred over there. The patient was supposed to be transferred and I got a call from nursing cytotechnologist/cytology supervisor that [facility] has no bed. I talked to Dr. Buchanan again. He called me back after having discussion with the nursing cytotechnologist/cytology supervisor at [facility] and told me that they have a bed and still they will take the patient. Again, after at least half an hour, I got a call from nursing cytotechnologist/cytology supervisor that she spoke to them and they do not have bed and at present they are not accepting the patient. I called back Dr. Buchanan and discussed. He spoke to his nursing cytotechnologist/cytology supervisor again and called me back and told me that they are in the process of discharging and making bed. If patient is stable, then keep him, or if he is unstable, then plan left heart catheterization at here. Dr. Buchanan will be called in the morning over there. He will try his best to have this patient over there as he had all his interventions, including TAVR over there. Dr. Mclain is in hospital from Cardiology. I left a message to her regarding my conversation with Dr. Buchanan. I spoke to the hospitalist, Dr. Cirilo Perdomo, who is managing this patient along with Cardiology and discussed. Dr. Perdomo will get hold of Dr. Mclain as well as our sound controller, Dr. Almeida, and evaluate the patient and act accordingly. I spent extra total at least 45 minutes having discussion with Dr. Buchanan multiple times and having discussion with nursing staff as well.
[2016-10-21] MEDS ORDERED: 0.9% Sodium Chloride 250 ML ONE (15:47)
--- NOTE | 2016-10-21 15:47 | PCM.PNNEPH ---
Subjective Date of Service Oct 21, 2016 Subjective Consultation note dictated. I was called to assess pt at [facility] due to bleeding per AVF. While on HD, he accidentally pulled HD needles out. He stated that he was not aware of doing that. BP during the incidence was 98/58. The HD alarm went off approximately 60 secs before HD nurse came to assess the pt because she was in the different room taking care of the other patient. HD nurse reported EBL ~ 200-300 ml. Current BP 87/51, H&H ordered stat. Exam Vital Signs Vital Sign - Last Date Time Temp Pulse Resp B/P Pulse Ox O2 Delivery O2 Flow Rate FiO2 10/21/16 12:20 37.0 83 20 114/61 95 Nasal Cannula 1.50 Intake and Output 10/20/16 10/20/16 10/21/16 Cumulative From/Thru 15:00 23:00 07:00 10/20/16 04:01 - 10/21/16 06:17 Intake Total 1190 ml 2997 ml 4187 ml Output Total 940 ml 0 ml 940 ml Balance 250 ml 2997 ml 3247 ml Intake Oral 1190 ml 300 ml 1490 ml IV Total 2697 ml 2697 ml Output Urine Total 940 ml 0 ml 940 ml # Voids 1 0 1 # Bowel Movements 1 1 2 Exam GA: pale, lethargy, orientedx3. Heart: RRR, systolic mumur Lungs: decreased BS at bases. Ext: right AVF, no active bleeding. Lab and Diagnostics Result Diagram: 10/21/16 0655 10/21/16 0655 Plan Impression 1. Acute blood loss. 2. Hypotension. 3. ESRD. 4. UA 5. CAD. will order stat H&H, IVF NS 200 ml over 1/2 hr, repeat BP. I have notified Dr. Cirilo Perdomo. Plan The patient will continue hyperbaric treatments. Will return () for treatment #() Akua Walsh MD Oct 21, 2016 15:46
--- NOTE | 2016-10-21 17:17 | NUR ---
Dialysis note: 4 hr rxd tx, completed approx 1 hr 50 min. Net UF 400. Accessed right upper arm fistula with 15 g needles without difficulty. Pt sleeping through most of the tx. I was called to the room approx 1509 and both needles had been completely removed and pt was bleeding. I applied pressure x 10 min and secured site with gauze and tape. BP at 1540 87/51 HR 80. Stat H&H 9.6 ; 28.7 200 mL NS given. Report given to floor RN. Pt stable, comfortable, and returned to floor stable. Please see DTR for complete record of VS
--- NOTE | 2016-10-21 18:21 | NUR ---
Cardiac/Dialysis/Right toe Reported 3/10 chest pain throughout shift-- MD aware, Heparin gtt currently infusing, nitro paste on. Tele VPACED with occasional PVCs 60s-80s. Incident at HD with patient removing catheter and losing approx 300ml of blood, received 200 NS bolus -- see dialysis note. Arrived back at approx 1730 in a stable condition. Reports mild SOB at rest, SPO2 on RA was 88-90%, placed on 1.5L NC, SPO2 at 96%. No reports of n/v/d/c or abdominal pain. No direct observation on Right toe, dressing c/d/i.
--- NOTE | 2016-10-21 20:43 | CONS ---
[address] [address] CONSULTATION REPORT PATIENT: ALLY HIRSCH : 1940 MR#: [id number] ADMIT: 10/20/2016 JOB ID: [id number] DATE OF SERVICE: REQUESTING PHYSICIAN: Cirilo Perdomo MD. REASON FOR CONSULTATION: Management of end-stage renal disease. CHIEF COMPLAINT: Chest pain. PRESENT ILLNESS: This is a very pleasant, 75-year-old gentleman with significant past medical history of end-stage renal disease, on hemodialysis every Friday, Friday, Friday, type 2 diabetes, hypertension, coronary artery disease, status post stenting, aortic stenosis status post TAVR, paroxysmal atrial fibrillation, history of subarachnoid and subdural hematoma, presented to the hospital due to chest pain. The patient was recently admitted between August 17 and August 21, 2016, due to similar symptoms. Echocardiogram done on that time showed ejection fraction of 40% and prosthetic aortic valve is well seated. He was also found to have a [id number] OR during that time. The patient was also seen by his senior bookkeeper in [place] and underwent another cardiac stenting. The patient started having substernal chest paint on the Friday. The pain was not relieved despite taking nitroglycerin. He then decided to come to the hospital. The patient was evaluated by a senior bookkeeper. The patient is likely to be transferred to hospital in [place] for further treatment by his senior bookkeeper. However, the transfer was fallen off. Renal was then consulted to resume dialysis while patient is in the hospital. PAST MEDICAL HISTORY: 1. End-stage renal disease, on hemodialysis every Friday, Friday, and Friday. 2. Type 2 diabetes with renal manifestations. 3. Hypertension with hypertensive nephrosclerosis. 4. Complex coronary artery disease with history of multiple heart attacks, and stenting. 5. Aortic stenosis, status post TAVR. 6. Paroxysmal atrial fibrillation. 7. Heart block, status post bi-V pacemaker placement. 8. Recent history of subarachnoid and subdural hematoma. 9. Peripheral vascular disease, status post attempted right lower extremity angioplasty on October 18, 2016. PAST SURGICAL HISTORY: 1. Status post TAVR in 2015. 2. Status post bi-V pacemaker placement. 3. PCI with a stent placement in 2015 and August 2016. 4. History of corneal transplant. 5. Status post AV fistula creation. FAMILY HISTORY: Positive for stroke in the father. Mother had type 2 diabetes and was on dialysis. SOCIAL HISTORY: Denies current use of alcohol, tobacco, illicit drugs. REVIEW OF SYSTEMS: Fourteen point review of system was performed. PHYSICAL EXAMINATION: Vitals: Temperature 37.0, pulse 83, respiratory 20, blood pressure 114/61, O2 sat 95% on nasal cannula. General appearance: Awake, alert, oriented x3. No acute distress. HEENT: Mild pallor. No jaundice. No JVD. No lymphadenopathy. No thyroid enlargement. Heart: Regular rhythm. Soft systolic murmur noted. Regular. Lungs: Decreased breath sound at bases. No wheezing, no rhonchi. Abdomen: Soft, active bowel sounds. Nontender. Nondistended. No hepatosplenomegaly. Extremities: No edema, cyanosis or clubbing of fingers. Right upper extremity AV fistula with good thrill. LABORATORY: WBC 12.4, hemoglobin 9.6, sodium 141, potassium 5.0, chloride 100, bicarb 19, BUN 81, creatinine 8.08, glucose 113. Troponin 0.366. ASSESSMENT: 1. Unstable angina, suspected stent thrombosis. 2. End-stage renal disease, on hemodialysis every Friday, Friday, and Friday. 3. Complicated history of coronary artery disease, status post cardiac stenting and multiple heart attacks. 4. Aortic stenosis, status post transcutaneous aortic valve replacement. 5. History of subdural and subarachnoid hemorrhage. 6. Type 2 diabetes. 7. Hypertension. 8. Peripheral vascular disease, status post attempted right lower extremity angioplasty. 9. Anemia in chronic kidney disease. PLAN: Per renal standpoint, we will resume dialysis today. He will be on dialysis for 4 hours with a 2.5 L fluid removal. Thank you for the consultation. We will monitor along with you. VIDHI
[2016-10-21] MEDS: Insulin GLARgine 100 Unit/mL Syringe SUBQ SCH (20:46)
--- NOTE | 2016-10-21 21:54 | PROG NOTE ---
[address] [address] PROGRESS NOTE PATIENT: ALLY HIRSCH : 1940 MR#: [id number] ADMIT: 10/20/2016 JOB ID: [id number] DATE: 10/21/2016 CHIEF COMPLAINT: The patient came in with chest discomfort described as stuttering. It was alleviated by nitroglycerin but because of persistence of the pain, he called 911 and was taken to the ED. He had no acute EKG changes. He is in a paced rhythm. The patient was admitted here in August of this year with an elevated troponin. He ultimately went to [facility] in [place] where his primary drill runner helper is and at that time an LAD lesion was found and he was treated with a 3.5 x 15 mm drug-eluting stent. This was also was assessed with IVUS, and felt to be well expanded. Since that time he has done relatively well until this current admission. He also has a history of peripheral vascular disease with a nonhealing wound on his right leg and an angiogram was performed, and there was nothing that was not easily fixed, therefore at this juncture nothing has been treated. The patient was supposed to be transferred up to [place] where his primary drill runner helper is, however, beds were not available. So, he is still here. He has been having intermittent episodes of chest pain. Today, he was down getting dialysis and, unfortunately, had some bleeding from his fistula and therefore has not arrived back to the floor at this time. PAST MEDICAL HISTORY/PROBLEM LIST: 1. History of coronary artery disease, history of multivessel disease and stents. Last stent in end of August 2016. 2. History of end-stage renal disease, on dialysis. 3. Hyperlipidemia. 4. Diabetes mellitus. HOME MEDICATIONS: 1. Allopurinol. 2. Aspirin. 3. Lipitor. 4. Insulin. 5. Metoprolol. 6. Niacin. 7. Sevelamer. 8. Ticagrelor. ALLERGIES: PLAVIX which caused him to break out in a rash. SOCIAL HISTORY: Never smoker. No significant alcohol use. FAMILY HISTORY: Mother with diabetes mellitus. REVIEW OF SYSTEMS: Unobtainable at this time as I am not able to visit with the patient. VITAL SIGNS: From today show a blood pressure 114/61, afebrile, heart rate 83, sats are 95% on 1.5 L. LABORATORY AND DIAGNOSTIC STUDIES: EKG shows paced rhythm. Labs show an H and H 9.6 and 28.7. Chemistry shows troponins in the range of 0.29 to 0.36. With his previous admission, troponins were much higher in the range of 2. Chest x-ray from October 20 shows no acute cardiopulmonary disease. CURRENT MEDICATIONS: Current medications include his home medications without change. However, he has had an antibiotic added. Echocardiogram was read as showing EF of 35% to 40% and posterolateral wall hypokinesis, basal inferior wall akinesis, apical inferior wall akinesis and apical akinesis also and mid anterolateral wall akinesis, multiple wall motion abnormalities. IMPRESSION: The patient comes in with chest discomfort. His troponins are not as elevated as before. Again, no acute EKG changes as he is paced. Troponins are not as high as before. He has a history of stenting at the end of August with a stent to his left anterior descending artery. I will have to review the echocardiogram more closely to look at wall motion abnormalities. At his last admission when I took care of him, he had an anteroapical wall motion abnormality which, again, was related to the LAD (now stented) He has been awaiting transfer to his cardiologists in [place]. However, if that does not occur soon, I will arrange for cardiac cath. 65 minutes was spent reviewing the patient's chart (including records from [place]) [facility]
[2016-10-22] MEDS: Sodium Chloride LOK Flush 10 mL Syringe IVFLUSH SCH ×2 (00:30→07:51)
[2016-10-22 01:30] LABS: BASOPHILS % (AUTO) 0.3 % (0-3); EOSINOPHILS % (AUTO) 0.9 % (0-5); MONOCYTES % (AUTO) 7.6 % (4-12); Mean Corpuscular Hemoglobin 33.1 pg (27.0-35.0); Mean Corpuscular Volume 99.2 fL (81-100); NEUTROPHILS % (AUTO) 75.9 % (40-74); Platelet Count 158 bil/L (150-400)
[2016-10-22 02:10] LABS: Phosphorus 5.6 mg/dL (2.5-4.9)
[2016-10-22 02:56] VITALS: BP 93/48; PULSE 85; RESP 20; O2SAT 96
[2016-10-22 04:13] VITALS: BP 95/49; PULSE 74; O2SAT 88
--- NOTE | 2016-10-22 06:19 | NUR ---
CHEST PAIN Patient was somewhat restless this evening without physical complaint until early this morning when he began complaining of increasing chest pain similar to what he has been experiencing. MD notified. O2 placed on patient and EKG obtained. Nitropaste was recently placed so morphine given with good relief. Currently resting, stating his pain went from 7-8/10 to 2-3. Keeping bed alarm on as patient has shown his impulsivity with getting out of bed. Will continue to monitor closely.
[2016-10-22 07:43] VITALS: BP 97/58; PULSE 92; RESP 18; O2SAT 93
[2016-10-22] MEDS: Nitroglycerin 2% 1 Gm Ointment TOPICAL SCH (07:52)
[2016-10-22] MEDS: Insulin LISPRO 300 Unit/3 mL Inj SUBQ SCH (07:58)
[2016-10-22] MEDS: MeTOProlol XL 25 mg ER24 Tablet PO SCH (08:45)
[2016-10-22] MEDS: Niacin SR 500 mg ER12 Tablet PO SCH (08:45)
--- NOTE | 2016-10-22 10:17 | NUR ---
Transfer/Discharge Pt ordered for transfer to [facility] in [place] for further treatment. Telephone reported given to SHAREE Chaparro and SHAREE Duff ALS transport. pt departed floor at [phone].
--- NOTE | 2016-10-22 15:23 | PCM.DC.MED ---
Discharge Summary Date of Service Oct 22, 2016 Dates of Hospitalization Date of Hospital Admission Oct 20, 2016 at 06:03 Date of Discharge: Oct 22, 2016 Providers: Admitting Physician: Dayanara Guillen DO Primary Care Physician: Hema Phillips MD Attending Physician: Dayanara Guillen DO Diagnosis at Time of Discharge Diagnosis at Time of Discharge 1. NSTEMI. 2. Known multivessel CAD 3. Aortic stenosis, history of TAVR. 4. DM 2, insulin-dependent. 5. Hypertension. 6. End-stage renal disease, 7. PAD. 8. Gangrenous right foot fifth toe. Consultations Radiology Nephrology Procedures XRay, CTs & MRIs Chest x-ray time of admission unremarkable ECG 12 Lead Atrial sensed, paced rhythm Cardiac Echo Impression nterpretation Summary The left ventricle is mildly dilated. The ejection fraction is estimated to be 35-40%. Compared to the prior exam, left ventricular function is slightly decreased. The right ventricle is normal size. The right ventricular systolic function is normal. There is a pacemaker lead in the right ventricle. There is mild to moderate mitral regurgitation. Compared to the prior echo study, there has been an increase in the severity of mitral regurgitation. There is a bioprosthetic aortic valve. The peak aortic velocity is 2.08 m/sec. The aortic valve mean gradient is 8.3 mmHg. The peak aortic velocity on the previous exam was 2.3 m/sec. There is trace tricuspid regurgitation. Compared to the prior echo exam, there has been no change in TR severity. The right ventricular systolic pressure is estimated at 37 mmHg assuming a right atrial pressure of 3 mm Hg. Compared to the prior echo exam, there has been an increase in the severity of pulmonary hypertension. Mild atherosclerotic plaque(s) in the aortic arch. Invasive Procedures Hemodialysis on October 21 Brief History This is a 75-year-old gentleman with a history of CAD with 3 stent procedures in the last 2 years, 2 MIs, and TAVr procedure. All of this is happening in [place], his lean manufacturing specialist is Dr. Albrecht. He has end-stage renal disease and dialyzes Friday and Friday. He has done well since his last stenting procedure which I believe was about 6 months ago. Last evening at rest developed substernal chest pain. This is been stuttering. This was alleviated with nitroglycerin which she take 4 doses of over approximately 8 hours. Ultimately because of persistence and recurrence of pain he called 911 and was taken to the ER. He had taken nitroglycerin just prior to being picked up by medics and had some recurrence of pain upon arrival to the ER. He was given another nitroglycerin and placed on paste as well as a heparin drip. He cannot say where his stents were placed. He denies recent cough, pleuritic pain, associated nausea vomiting diaphoresis or dyspnea. No recent exertional dyspnea or chest pain. He recently had a leg angiogram for his nonhealing right foot fifth toe. This is been an issue for about 7 months. He is found to have severe disease below the knee that was not amenable to PCI. The patient is on Plavix for this. Hospital Course 1. NSTEMI. The patient remains stable but does have evidence of elevated troponins which are slowly rising. He has nonspecific electrocardiogram findings. The patient's been discussed in depth with cardiology. The plan for today will be to continue his heparin drip nitro paste and other cardioprotective medications. His regular lean manufacturing specialist in [place] is unable to accept him in transfer. He last had a PCI with an LAD stent in mid August of this year. The patient will continue ostial antiplatelet agents and be reviewed by cardiology to decide whether or not he will need an angiogram here. 2. Known multivessel CAD, POA. Plan is as above 3. Aortic stenosis, history of T aVR. POA. 4. DM 2, insulin-dependent. POA. The plan is to continue Lantus with traction on nutritional lispro. This remained stable. 5. Hypertension. POA. Plan is to continue current antihypertensive therapy but will increase metoprolol and add lisinopril. This remained stable. 6. End-stage renal disease, POA. I have discussed his need for dialysis today with nephrology, they will coordinate. 7. One blood culture positive for GNR's. The patient does have a necrotic right fifth toe which is been ongoing and an issue for 7 months. This could be a nidus of infection. We will start ceftriaxone and await further blood cultures. This is probably a good reason daily for percutaneous coronary intervention today until more information is available. This patient is full resuscitation His assessment length stays over 2 nights. Hospital course. This patient presented with stuttering chest pain. He had evidence of an NSTEMI with elevations of troponins and 0.250 range. The patient was heparinized and treated with beta-blockade and dual antiplatelet therapy. He is seen by cardiology. They felt that he benefit from transfer to [place] where his primary cardiology team is. The patient was dialyzed on October 21 have an incident where he lost approximately 200 ml of blood when the dialysis needle was pulled from his fistula. The patient otherwise is relatively stable throughout. Cardiology was considering testing the patient when [facility] did call for him and execute transfer to the [facility] on the morning of October 22. On the morning of transfer he is doing well, was comfortable, chest pain-free and able to speak without difficulty. Exam Vital Signs (Last) Date Time Temp Pulse Resp B/P Pulse Ox O2 Delivery O2 Flow Rate FiO2 10/22/16 07:43 37.2 92 18 97/58 93 Room Air 10/21/16 20:10 1.00 Exam Patient seen and examined on the day of discharge. Test 10/20/16 04:25 10/20/16 04:30 10/20/16 09:05 10/21/16 06:55 Total Bilirubin 0.5mg/dL (0.0-1.2) Aspartate Amino Transf (AST/SGOT) 19U/L (0-50) Alanine Aminotransferase (ALT/SGPT) 20U/L (0-44) Alkaline Phosphatase 122U/L (25-160) Total Protein 6.1g/dL (6.4-8.4) Hold [place] Top Tube Received (Received) Hemoglobin A1c 5.6% (4.8-5.6) Magnesium Level 2.3mg/dL (1.6-2.6) Total Creatine Kinase 49U/L (21-232) Creatine Kinase MB 4.7ng/mL (0.0-10.4) Creatine Kinase MB % % (0.0-5.0) Thyroid Stimulating Hormone (TSH) 3.910uIU/mL (0.450-4.500) Estimat Glomerular Filtration Rate 7mL/min (>59) Troponin T 0.366ug/L (0.0-0.011) Triglycerides Level 94mg/dL (0-149) Cholesterol Level 76mg/dL (100-199) LDL Cholesterol, Calculated 29.200mg/dL (0-99) VLDL Cholesterol 18.800mg/dL HDL Cholesterol 28mg/dL (>39) Cholesterol/HDL Ratio 2.71 (0.0-4.4) Test 10/22/16 01:15 10/22/16 07:18 White Blood Count 14.8th/mm3 (3.8-10.1) Red Blood Count 2.51mil/mm3 (4.40-5.80) Hemoglobin 8.3g/dL (13.8-17.2) Hematocrit 24.9% (41.0-50.0) Mean Corpuscular Volume 99.2fL (81-100) Mean Corpuscular Hemoglobin 33.1pg (27.0-35.0) Mean Corpuscular Hemoglobin Concent 33.3% (32.0-37.0) Red Cell Distribution Width 12.5% (12.3-15.4) Platelet Count 158bil/L (150-400) Neutrophils (%) (Auto) 75.9% (40-74) Lymphocytes (%) (Auto) 15.0% (14-46) Monocytes (%) (Auto) 7.6% (4-12) Eosinophils (%) (Auto) 0.9% (0-5) Basophils (%) (Auto) 0.3% (0-3) Sodium Level 139mEq/L (134-144) Potassium Level 4.7mEq/L (3.5-5.2) Chloride Level 96mEq/L (97-108) Carbon Dioxide Level 22mmol/L (18-29) Blood Urea Nitrogen 60mg/dL (8-27) Creatinine 6.50mg/dL (0.76-1.27) Glucose Level 105mg/dL (60-99) Calcium Level 8.8mg/dL (8.5-10.1) Phosphorus Level 5.6mg/dL (2.5-4.9) Albumin 3.2g/dL (3.4-5.0) Activated Partial Thromboplast Time 100.3sec (22.8-33.0) Discharge Medications Discharge Medications Allopurinol (Allopurinol) 100 Mg Tablet 100 MG PO DAILY (Reported) Aspirin (Aspirin) 81 Mg Tablet 81 MG PO DAILY (Reported) Atorvastatin Calcium (Atorvastatin Calcium) 40 Mg Tablet 40 MG PO DAILY ( Reported) Cholecalciferol (Vitamin D3) (Vitamin D) 1,000 Unit Capsule 1,000 UNIT PO DAILY (Reported) Insulin Glargine (Lantus U100 Solostar Insulin Pen) 100 Unit/1 Ml Insuln.pen 40 UNITS SUBQ HS (Reported) Metoprolol Succinate ER (Metoprolol Succinate ER) 50 Mg Tab.er.24h 75 MG PO BID Prescribed by: BRICE COATS DO Niacin ER (Niacin ER) 500 Mg Tablet 500 MG PO DAILY (Reported) Sevelamer Carbonate (Renvela) 800 Mg Tablet 2,400 MG PO TIDWM (Reported) Ticagrelor (Brilinta) 90 Mg Tablet 90 MG PO BID (Reported) As needed Hydrocodone-Acetaminophen 5-325 mg (Hydrocodone-Acetaminophen 5-325 mg) 1 Each Tablet 1 EACH PO Q4H PRN PRN For Pain (Reported) Nitroglycerin SL (Nitrostat) 0.4 Mg Tab.subl 0.4 MG SL Q5MIN PRN PRN For Pain ( Reported) Ondansetron (Ondansetron) 4 Mg Tablet 4 MG PO QID PRN PRN For Nausea (Reported) Zolpidem (Zolpidem) 5 Mg Tablet 5 MG PO HS PRN PRN Insomnia (Reported) diphenhydrAMINE HCl (Benadryl) 25 Mg Capsule 25 MG PO Q4 PRN PRN For Itching ( Reported) Followup Plan Disposition: [facility]. Time spent 50 minutes Cirilo Perdomo MD Oct 22, 2016 15:23
== END 2016-10-22 09:05 | disposition short-term general hospital (02) | DRG 280 ==
LOC: SED 03:54 → PCC 06:03
PROVIDERS: ADMIT Internal Medicine; ATTEND Hospitalist
PROC: 5A1D00Z (ICD-10-PCS; principal; 2016-10-21)
DX: I21.4 Non-ST elevation (NSTEMI) myocardial infarction (principal); N18.6 End stage renal disease; I12.0 Hypertensive chronic kidney disease with stage 5 chronic kidney disease or end stage renal disease; E11.52 Type 2 diabetes mellitus with diabetic peripheral angiopathy with gangrene; I25.10 Atherosclerotic heart disease of native coronary artery without angina pectoris; M1A.9XX0 Chronic gout, unspecified, without tophus (tophi); I25.5 Ischemic cardiomyopathy; I73.9 Peripheral vascular disease, unspecified; D63.1 Anemia in chronic kidney disease; E78.5 Hyperlipidemia, unspecified; Z79.4 Long term (current) use of insulin; Z95.2 Presence of prosthetic heart valve; Z79.82 Long term (current) use of aspirin; I25.2 Old myocardial infarction